=== PATIENT | male | born 1945 | race Caucasian/White ===

== ENCOUNTER 2024-08-27 10:25 | Outpatient (AMB) | payer MEDICARE, SELFPAY ==
--- NOTE | 2024-08-27 10:38 | ORTHONT_ITS ---
Vital signs 08/27/24 10:40 Height 1.85 m Height Method Stated Weight 103.561 kg Weight Measurement Method Standing Scale BMI 30.2 BP 173/71 H Blood Pressure Source Automatic Cuff Blood Pressure Location Right Upper Arm Position Sitting Respiration 18 Pulse 80 Pulse Source Monitor Temp 97.2 F Temp Source Temporal Artery Scan Pulse Oximetry (%) 93 L Oxygen Delivery Method Room Air Med/Allergies Allergies & Medications Allergies bacitracin [From Neosporin ([id number])] Allergy (Severe, Verified 08/27/24 10:41) Redness of Skin neomycin [From Neosporin ([id number])] Allergy (Severe, Verified 08/27/24 10:41) Redness of Skin polymyxin B [From Neosporin ([id number])] Allergy (Severe, Verified 08/27/24 10:41) Redness of Skin Medication Reconciliation mirtazapine 30 mg tablet (Remeron) 30 mg PO HS #0 tabs 02/27/15 [History Confirmed 08/27/24] simvastatin 40 mg tablet (Zocor) 40 mg PO QPM #0 tabs 02/27/15 [History Confirmed 08/27/24] aspirin 81 mg chewable tablet 81 mg PO QDAY ##0 04/21/16 [History Confirmed 08/27/24] finasteride 5 mg tablet 5 mg PO DAILY 04/05/20 [History Confirmed 08/27/24] metformin 500 mg tablet 500 mg PO QDAY 04/05/20 [History Confirmed 08/27/24] omega 9-jdy-lxu-fish oil 1,000 mg (120 mg-180 mg) capsule (Fish Oil) 1 cap PO QDAY 04/05/20 [History Confirmed 08/27/24] omeprazole 40 mg capsule,delayed release 40 mg PO QDAY 04/05/20 [History Confirm ed 08/27/24] hydrochlorothiazide 12.5 mg tablet 25 mg PO QDAY 01/25/21 [History Confirmed 08/27/24] clonazepam 1 mg tablet (Klonopin) 1 mg PO QDAY PRN Anxiety 03/12/21 [History Confirmed 08/27/24] gabapentin 300 mg capsule 300 mg PO QDAY 03/12/21 [History Confirmed 08/27/24] losartan 100 mg tablet 100 mg PO QDAY 03/12/21 [History Confirmed 08/27/24] Saccharomyces boulardii 250 mg capsule (Probiotic (S.boulardii)) 250 mg PO BID 06/16/24 [History Confirmed 08/27/24] cholecalciferol (vitamin D3) 25 mcg (1,000 unit) capsule (Vitamin D3) 25 mcg PO QDAY 06/16/24 [History Confirmed 08/27/24] docusate sodium 100 mg capsule (Dulcolax Stool Softener (docusate)) 100 mg PO QDAY PRN Constipation 06/16/24 [History Confirmed 08/27/24] doxazosin 2 mg tablet 2 mg PO QDAY 06/16/24 [History Confirmed 08/27/24] magnesium 500 mg tablet 500 mg PO DAILY 06/16/24 [History Confirmed 08/27/24] metoprolol succinate 50 mg tablet,extended release 24 hr 50 mg PO QDAY 06/16/24 [History Confirmed 08/27/24] hsdwkterekkc-anrtmvyp-jafoih tablet 1 tab PO QDAY 06/16/24 [History Confirmed 08/27/24] albuterol sulfate 90 mcg/actuation aerosol inhaler (Ventolin HFA) 1 inh inhalation QID PRN shortness of breath or wheezing #6.7 grams 06/18/24 [Rx Confirmed 08/27/24] prednisone 5 mg tablet See Taper PO QDAY #14 tabs 06/18/24 [Rx Confirmed 08/27/24] Subjective Visit Visit for: follow up visit, hip (RIGHT) and injections Immunization / Flu Flu Vaccine in the Last 12 Months: Yes Flu Vaccine Exclusion Criteria: Already Received History of Present Illness Chief complaint: FOLLOW UP RIGHT HIP/INJECTION Neymar is a pleasant 79-year-old male who had a recent spine surgery. The pain down his legs has not significantly improved since then. Right he would like to try a cortisone injection in his right hip. I think this is reasonable. His pain is significant improved since we last saw him Pain Pain level (0-10): 4 Pain duration: WITH MOVEMENT Pain location: inside (medial) Pain quality: aching Pain timing: night and increases with activity Associated signs & symptoms: numbness Ambulatory data Ambulatory device: none Treatments Improvement with previous injections: No Improvement with PT: No Improvement with NSAIDS: no Review of Systems Review of Systems: All systems negative unless otherwise noted in HPI. Exam Exam Patient is in no acute distress and is cooperative with the examination today. Breathing is nonlabored. In no respiratory distress. Patient has no paraspinal tenderness. Spinal deformity cannot be appreciated. The gait of the patient is nonantalgic Bilateral extremities were evaluated and demonstrates sensation intact to light touch. Palpable pedal pulses are present. No significant edema is present. Bilateral knees were examined and the patient has full strength and range of motion.. The left hip was examined. Patient was able to flex to 90 degrees, adduct to 30 degrees, abduct to 40 degrees, internally rotate to 20 degrees, and externally rotate to 20 degrees. Patient has a negative logroll. Stinchfield is negative. The patient is nontender diffusely to touch. The right hip was examined. Patient was able to flex to 90 degrees, adduct to 30 degrees, abduct to 40 degrees, internally rotate to 20 degrees, and externally rotate to 20 degrees. Patient has a negative logroll. The stinchfield is negative. Assessment and Plan Problem List (1) Low back pain: Status: Acute Plan: Patient is a 78-year-old male with significant difficulty ambulating after he walks 10 minutes. We found that he had spinal stenosis and we sent him to a spine doctor who is significantly improved his back and leg pain. He still has some residual pain in his right hip. He would Like to try a right hip cortisone injection after this. He would like to start therapy afterwards and we think this is reasonable. We will see him back after his cortisone injection in his back. (2) Sciatica: Status: Acute Advanced Care Planning Discussion Advance care planning discussed with:: patient and child Office Procedures GNS Level of Care Nursing/Assessment Patient Status: Established Patient Nursing Assessment/Reassesment: Medication Reconciliation, Update PMH in EMR and Vital Signs Coordination of Care: Complex Care and Chronic Disease 1-5, Education Complex Pt/Fam, Consent,records obtained, informed consent, 1 Ins Authorization and Staff clarify orders Established Patient Charge Established Patient Point Assignment: 105 Established Patient Point Charge: EP Level 3 (80-115) Past Medical History Past Medical History Have you ever been diagnosed with any of the following: Neurological Problems Cerebrovascular Accident (CVA): No Transient Ischemic Attacks (TIA): Yes Dementia: No Alzheimer's Disease: No Parkinson's Disease: No Brain Tumor: No Meningitis: No Seizures: No Epilepsy: No Multiple Sclerosis: No Cerebral Palsy: No Amyotrophic Lateral Sclerosis (ALS/Miracle Gehrig's): No Guillain-[place] Syndrome: No Spina Bifida: No Paralysis: No Peripheral Neuropathy: No Jimenez's Palsy: No Subdural Hematoma: No Migraine: No Head Trauma: No Spinal Cord Injury: No Traumatic Brain Injury: No Cardiology Problems Myocardial Infarction: No Cardiac Arrhythmia: No Atrial Fibrillation: No Angina: No Heart Murmur: No Coronary Artery Disease: No Atherosclerotic Heart Disease: No Peripheral Vascular Disease: No Hypercholesterolemia: Yes Aneurysm: No Congestive Heart Failure: No Congenital Heart Disease: No Valvular Heart Disease: No Rheumatic Fever: No Cardiomyopathy: No Edema: No Pericarditis: No Cellulitis: No Deep Vein Thrombosis: No Hypertension: Yes Hypotension: No Varicose Veins: No Respiratory Problems Chronic Obstructive Pulmonary Disease (COPD): No Asthma: No Bronchitis: No Emphysema: No Pneumonia: Yes Pulmonary Fibrosis: No Tuberculosis: No Pulmonary Embolism: No Pulmonary Edema: No Sleep Apnea: No Smoking: No Smoking Exposure: No Stomache/Intestinal Problems Hepatitis: No Cirrhosis: No Pancreatitis: No Celiac Disease: No Gall Bladder Disease: No Gastrointestinal Bleed: No Esophageal Varices: No Cabrera's Esophagus: No Colitis: No Ulcerative Colitis: No Diverticulitis: No Diverticulosis: No Ulcer: No Irritable Bowel: No Crohn's Disease: No Obstructive Bowel: No Hiatal Hernia: No Hemorrhoids: No Gastroesophageal Reflux Disease: Yes Obesity: No Genital/Urinary Problems Renal Disease: No Kidney Stones: No Polycystic Kidney Disease: No Neurogenic Bladder: No Inguinal Hernia: No Dialysis: No Prostate Cancer: No Benign Prostatic Hyperplasia: Yes Reproductive Problems Testicular Cancer: No Musculoskeletal Problems Muscular Dystrophy: No Myasthenia Gravis: No Marfan's Syndrome: No Bone Cancer: No Arthritis: Yes Rheumatoid Arthritis: No Osteoporosis: No Degenerative Disk Disease: No Gout: No Scoliosis: No Carpal Tunnel Syndrome: No Fibromyalgia: No Fractures: Yes Degenerative Joint Disease: No Osteomyelitis: No Poliovirus: No Head,Eye,Nose,Throat Problems Cataracts: Yes Glaucoma: No Blind: No Retinal Detachment: No Macular Degeneration: No Chronic Ear Infections: No Deafness: No Eye Prosthesis: No Endocrine Problems Diabetes Mellitus Type 1: No Diabetes Mellitus Type 2: Yes Hypoglycemia: No Atwood's Syndrome: No Alejandro's Disease: No Hyperthyroidism: No Hypothyroidism: No Parathyroid Disease: No Pituitary Disease: No Systemic Lupus Erythematosus: No Syndrome of Inappropriate Antidiuretic Hormone: No Adrenal Disease: No Graves' Disease: No Blood Problems Anemia: No Leukemia: No Hemophilia: No Thalassemia: No Sickle Cell Disease: No Clotting Problems: No Psychologic Problems Schizophrenia: No Recreational Drug Use: No Bipolar Disorder: No Depression: No Anxiety: No Behavior Problems: No Self-Mutilation: No Attention Deficit Disorder: No Attention Deficit Hyperactivity Disorder: No Depression: No Post Traumatic Stress Disorder: No Eating Disorder: No Other Problems Hospitalization: No Down Syndrome: No Autism: No Developmental Delay: No Falls: No Blood Transfusions: No Blood Transfusion Reaction: No (na) Anesthesia Reactions: No Organ Transplant: No Chemotherapy: No Radiation Therapy: No Hyperbaric Therapy: No MRSA: No VRSA: No Vancomycin-Resistant Enterococci: No Human Immunodeficiency Virus (HIV): No Chicken Pox: No Measles: No Mumps: No Rubella (I[place]ic Measles): No Pertussis: No Clostridium Difficile: No Cancer: No Lung Cancer: No Surgical History Carotid Endarterectomy: No Coronary Artery Bypass Graft: No Valve Replacement: No Pacemaker: No Thyroidectomy: No
[2024-08-27 10:40] VITALS: BP 173/71; PULSE 80; RESP 18; TEMP 36.2; O2SAT 93; BMI 30.2
== END 2024-08-27 10:54 | disposition home or self-care (01) ==
LOC: HODSRG 10:25
PROVIDERS: Supervising Provider Orthopaedic Surgery Adult Reconstructive Orthopaedic Surgery; Visit Provider Orthopaedic Surgery Adult Reconstructive Orthopaedic Surgery
DX: M54.50 Low back pain, unspecified (principal); M54.30 Sciatica, unspecified side; I10 Essential (primary) hypertension; E78.00 Pure hypercholesterolemia, unspecified; Z86.73 Personal history of transient ischemic attack (TIA), and cerebral infarction without residual deficits
CPT/HCPCS: 99213; G0463

== ENCOUNTER → 2024-08-31 | Outpatient (CLI) | payer MEDICARE, SELFPAY ==
[2024-08-31 15:40] LABS: Basophils % (Auto) 1 % (0-2.5); Eosinophils # (Auto) 0.6 Thou/mm3 (0.0-0.5); Eosinophils % (Auto) 10 % (0-10); Hematocrit 32.2 % (41.0-53.0); Immature Granulocytes % (Auto) 0 % (0-0); Immature Granulocytes Auto 0.02 Thou/mm3 (0.00-0.00); Lymphocytes # (Auto) 2.2 Thou/mm3 (1.0-4.8); Lymphocytes % (Auto) 34 % (10-50); Mean Corpuscular HGB Conc 34.2 g/dl (31.0-37.0); Mean Corpuscular Volume 94 fL (80-100); Monocytes # (Auto) 0.6 Thou/mm3 (0.0-0.8); Monocytes % (Auto) 9 % (0-12); Neutrophils % (Auto) 47 % (37-80); Nucleated Red Blood Cell % 0 /100 WBC (0); Platelet Count 238 Thou/mm3 (140-440); RDW Standard Deviation 46.2 fL (35.1-43.9); Red Blood Count 3.44 Miln/mm3 (4.50-5.90); White Blood Count 6.4 Thou/mm3 (3.8-10.6)
--- NOTE | 2024-08-31 15:43 | XR_ITS ---
Examination: MRI brain without intravenous contrast. Date and time of exam: August 31, 2024 1712 hours INDICATIONS: Dizziness episodes loss of balance 4 days Technique: Multiple axial and sagittal images of the brain obtained. Siemens high-resolution 1.5 Tessie short bore scanners utilized. Sagittal sections, T1-weighted, TR 500, TE 14, are performed. Axial sections proton-density and T2-weighted have been obtained. Inversion recovery axial images, TR 9, 260, TE 111, TI 2500. Diffusion weighted images, axial sections, TR 4800, TE 128, B value 1000 Axial sections, ADC map, TR 4800, TE 128 Findings: Enlargement of the sella turcica is not present. The optic chiasm and infundibular are not remarkable. Prepontine and interpeduncular cisterns are not enlarged. There is no localized enlargement of the medulla or thania. Fourth ventricle and cerebellar tonsils appear normal in position. No subacute area of hemorrhage density is seen. Mass in the cerebellopontine angle region is not evident. Globes symmetrical. Orbital musculature including medial lateral rectus muscles do not exhibit abnormality. Diffusion-weighted images demonstrate no focus of restricted diffusion. Increased white matter signal prominent Mild chronic pansinusitis Left mastoiditis Mass effect upon the ventricular system is not identified. Impression: Negative for acute hemorrhage, mass effect or midline shift No acute infarct Prominent chronic microvascular white matter change Left mastoiditis
[2024-08-31 16:00] LABS: Alanine Aminotransferase 17 U/L (10-49); Albumin, Serum 4.4 gm/dL (3.4-4.8); Albumin/Globulin Ratio 1.7 (1.2-2.2); Alkaline Phosphatase 73 U/L (46-116); Anion Gap 4 (7-16); Aspartate Amino Transferase 14 U/L (0-34); BUN/Creatinine Ratio 17 Ratio (12-20); Bilirubin,Total 0.2 mg/dL (0.3-1.2); Blood Urea Nitrogen 29 mg/dL (9-23); Calcium 10.3 mg/dL (8.3-10.6); Calcium (Corrected) 10.3 mg/dL (8.5-10.1); Carbon Dioxide 28.7 mMol/L (20.0-31.0); Chloride 102 mMol/L (98-107); Creatinine (Component) 1.7 mg/dL (0.6-1.3); Globulin 2.6 gm/dL (2.3-3.5); Glucose 200 mg/dL (74-106); Magnesium 1.7 mg/dL (1.6-2.6); Osmolality,Calculated 281 (275-295); Phosphorous 3.4 mg/dL (2.4-5.1); Potassium 4.9 mMol/L (3.4-5.1); Sodium 135 mMol/L (136-145); Thyroid Stimulating Hormone 6.54 uIU/mL (0.55-4.78); eGFR 40 See Note
== END | disposition home or self-care (01) ==
LOC: SLAB 15:07
PROVIDERS: PCP Internal Medicine; Referring Provider Internal Medicine; Visit Provider Radiology Diagnostic Radiology
DX: R90.82 White matter disease, unspecified (principal); R42 Dizziness and giddiness; E87.1 Hypo-osmolality and hyponatremia
CPT/HCPCS: 36415; 70551; 80053; 83735; 84100; 84443; 85025

== ENCOUNTER 2024-10-07 01:11 | Inpatient (IN) | payer MEDICARE, SELFPAY ==
[2024-10-07] VITALS (24 sets, daily range): BP systolic 100–149; BP diastolic 43–77; PULSE 61–120; RESP 16–32; TEMP 36.2–39.9; O2SAT 91–99; BMI 32.1; BMI 32.3
--- NOTE | 2024-10-07 01:22 | EKG_ITS ---
[facility] Test Date: 2024-10-07 Pat Name: JANAE ROCK Department: Room: - Gender: Male Bond Clerk: JAMES : 1945 Requested By: Anabell Carcamo Order Number: [id number] Reading MD: Anabell Carcamo Measurements Intervals [place] Rate: 61 P: MT: QRS: -52 QRSD: 146 T: 1 QT: 415 QTc: 419 Interpretive Statements ATRIAL FLUTTER/TACHYCARDIA MARKED LEFT AXIS DEVIATION [QRS AXIS < -30] RIGHT BUNDLE BRANCH BLOCK [120+ ms QRS DURATION, UPRIGHT V1, 40+ ms S IN I/aVL/V4/V5/V6] Compared to ECG 06/15/2024 00:58:07 Left-axis deviation now present Left anterior fascicular block no longer present /store/S0/[id number]
--- NOTE | 2024-10-07 01:25 | EDNOTE_ITS ---
<Statement entered by Anabell Haro MD - 10/08/24 19:25> I, Anabell Haro MD, have reviewed the history, exam, and assessment of the patient. I have evaluated the patient independently and agree with the plan of care documented by [ ]. All diagnostic studies were reviewed and discussed. I confirm the diagnosis as documented by the Resident. I was present during the Medical Decision Making for this patient. The patient's plan of care was created between myself and the Resident and consistent with our discussion of the patient's case. ED General RME/HPI General Chief complaint: Dizziness Stated complaint: POSS STROKE, SOB Time Seen by Provider: 10/07/24 01:12 Arrival date/time: 10/07/24 01:11 RME / HPI RME / HPI narrative: An 79-year-old male with past medical history of hypertension, diabetes, anxiety, dyslipidemia, acid reflux, EVIN, COPD, TIA, chronic low back pain, severe neuropathy, and CKD stage III, COVID positive, requiring admission on 06/15/2024 presents on 10/07/2024 to the ED due to shortness of breath and generalized weakness. History was obtained by at bedside. Patient has sick contact, daughter who is a nurse and had the flu. 1 day after daughter visited the patient, patient started to feel generalized weakness. Today in the morning patient started to experience shortness of breath with a dry cough. He was also swaying while walking which is not his normal. He was also talking slower with increased weakness. At midnight today, patient screamed while in bed and got up to use the restroom from his bed. He did not make it to the restroom and urinated on himself. Soon after, he vomitted his dinner. Patient did not take any medications or treatment for his symptoms. called the paramedics and he was transported to the ED. Patient's daughter, an RN, has the flu and recently visited the family. Denies recent travel. A stroke alert was called but immediately canceled as patient presented with respiratory symptoms. Per EMS, heart rate was 112, pulse ox 92% on nasal cannula and blood sugar 224. In the ED, 103.6F, BP 148/77, HR 120, respiratory rate 32. LA elevated. He is alert to person, place and time, GCS of 15, and NIHSS unable to assess as patient says he feels to weak to complete the exam. IV fluids, azithromycin, and ceftriaxone given. MD complaint: SOB + generalized weakness Onset (ago): day(s) Location: chest Radiation: non-radiation Severity: moderate and severe Quality: aching Consistency: constant Relieving factors: none Associated symptoms: cough, fever/chills, shortness of breath and weakness Related Data Home Medications ?Medication ?Instructions ?Recorded ?Confirmed mirtazapine 30 mg tablet (Remeron) 30 mg PO HS #0 tabs 02/27/15 08/27/24 simvastatin 40 mg tablet (Zocor) 40 mg PO QPM #0 tabs 02/27/15 08/27/24 aspirin 81 mg chewable tablet 81 mg PO QDAY ##0 04/21/16 08/27/24 finasteride 5 mg tablet 5 mg PO DAILY 04/05/20 08/27/24 metformin 500 mg tablet 500 mg PO QDAY 04/05/20 08/27/24 omega 3-xwb-gby-fish oil 1,000 mg 1 cap PO QDAY 04/05/20 08/27/24 (120 mg-180 mg) capsule (Fish Oil) omeprazole 40 mg capsule,delayed 40 mg PO QDAY 04/05/20 08/27/24 release hydrochlorothiazide 12.5 mg tablet 25 mg PO QDAY 01/25/21 08/27/24 clonazepam 1 mg tablet (Klonopin) 1 mg PO QDAY PRN Anxiety 03/12/21 08/27/24 gabapentin 300 mg capsule 300 mg PO QDAY 03/12/21 08/27/24 losartan 100 mg tablet 100 mg PO QDAY 03/12/21 08/27/24 Saccharomyces boulardii 250 mg 250 mg PO BID 06/16/24 08/27/24 capsule (Probiotic (S.boulardii)) cholecalciferol (vitamin D3) 25 25 mcg PO QDAY 06/16/24 08/27/24 mcg (1,000 unit) capsule (Vitamin D3) docusate sodium 100 mg capsule 100 mg PO QDAY PRN Constipation 06/16/24 08/27/24 (Dulcolax Stool Softener (docusate)) doxazosin 2 mg tablet 2 mg PO QDAY 06/16/24 08/27/24 magnesium 500 mg tablet 500 mg PO DAILY 06/16/24 08/27/24 metoprolol succinate 50 mg 50 mg PO QDAY 06/16/24 08/27/24 tablet,extended release 24 hr aqujoyplurxi-yvrizdew-avxovv tablet 1 tab PO QDAY 06/16/24 08/27/24 Previous Rx's ?Medication ?Instructions ?Recorded albuterol sulfate 90 mcg/actuation 1 inh inhalation QID PRN shortness 06/18/24 aerosol inhaler (Ventolin HFA) of breath or wheezing #6.7 grams prednisone 5 mg tablet See Taper PO QDAY #14 tabs 06/18/24 Allergies Allergy/AdvReac Type Severity Reaction Status Date / Time bacitracin Allergy Severe Redness of Verified 08/27/24 10:41 [From Neosporin Skin ([id number])] neomycin Allergy Severe Redness of Verified 08/27/24 10:41 [From Neosporin Skin ([id number])] polymyxin B Allergy Severe Redness of Verified 08/27/24 10:41 [From Neosporin Skin ([id number])] Review of Systems Review of Systems Systems Reviewed: All systems reviewed, normal except as documented Narrative Review of Systems: Constitutional: Denies sweats, Denies weight loss/gain, Denies subjective fever, Denies chills. HEENT: Admits hearing loss. Respiratory: Admits shortness of breath, Admits cough, Denies wheezing. Cardiovascular: Denies chest pain, Denies palpitations. GI: Denies abdominal pain. Endorses vomit. MSK: Denies joint pain, Denies joint swelling, Denies numbness. Skin: Denies rash. Neuro: Denies headaches, Admits dizziness and weakness. Past Medical History Past Medical History NEUROLOGIC: Positive Neurological Disorders and Transient Ischemic Attacks (TIA); Negative Seizures CARDIAC: Positive Cardiac Disorders, Hypercholesterolemia and Hypertension; Negative Congestive Heart Failure RESPIRATORY: Positive Pneumonia; Negative Chronic Obstructive Pulmonary Disease (COPD) GASTROINTESTINAL: Positive Gastrointestinal Disorders and Gastroesophageal Reflux Disease GENITOURINARY: Positive Genitourinary Disorders and Benign Prostatic Hyperplasia; Negative Renal Disease or Kidney Stones MUSCULOSKELETAL: Positive Musculoskeletal Disorders and Arthritis ENT: Positive Cataracts ENDOCRINE: Positive Endocrine Disorders and Diabetes Mellitus Type 2; Negative Diabetes Mellitus Type 1 HEMATOLOGIC: Negative Blood Disorders OTHER HISTORY: Negative Hospitalization, Autoimmune Disease, Falls, Blood Transfusions, Anesthesia Reactions or Cancer Family History FAMILY HISTORY: Positive Family Cardiac Disorders; Negative Family Psychiatric Problems, Family Respiratory Disorders, Family Gastrointestinal Problems, Family Cancer, Family Surgery or Family Anesthesia Reaction Surgical History SURGICAL: Positive Abdominal Surgery and Joint Replacement Social History SMOKING STATUS: Former smoker SUBSTANCE USE: does not use ALCOHOL LAST INTAKE: Unknown ED Exam Narrative Physical exam: General: well developed elderly male, not in any acute distress Respiratory: Tachypneic, lungs clear souza with diminished breath sounds b/l and b/l wheezing lower lung lobes. Oxygen saturations 91% on NC. HEENT: Normocephalic. Within acceptable limits. Chest: Equal chest rise, nontender to palpation, CV: no murmurs rubs or clicks. S1 and S2. Tachycardia. Abdomen: Nontender no masses or organomegaly Extremities: Moving all extremities with limited ROM UE and LE. Skin: Intact no petechiae rash induration ulceration crepitus Neuro: Awake alert oriented x3 and place Glascow coma 15 Course Quality Measures none Orders Category Date Time Status Bedside COVID-19 Antigen Test NOW Care 10/07/24 01:29 Active Bedside Influenza A&B Antigen Test NOW Care 10/07/24 01:26 Completed COVID-19 Screening Questionnaire NOW Care 10/07/24 03:02 Active Director Community Organization NOW Care 10/07/24 01:26 Active Decision to Admit X1 Care 10/07/24 03:02 Completed EKG (ED ONLY) *Do not use* NOW Care 10/07/24 01:22 Completed CXRP [XR chest 1V portable] Stat Exams 10/07/24 01:26 Taken EKG (ED Only) Stat Exams 10/07/24 01:22 Ordered B-Type Natriuretic Peptide Stat Lab 10/07/24 01:24 Completed Blood Culture (Lab) Stat Lab 10/07/24 01:30 Received CBC Stat Lab 10/07/24 01:24 Completed Cocci Serology IgM with reflex to IgG [Cocci Serology, Lab 10/07/24 01:27 Ordered Unk History] Stat Comprehensive Metabolic Panel Stat Lab 10/07/24 01:24 Completed Influenza A & B Rapid Panel Stat Lab 10/07/24 01:30 Completed Lactate (Lactic Acid) Stat Lab 10/07/24 01:24 Completed Lactic Acid, 3 HR Stat Lab 10/07/24 04:31 Ordered Lipase Stat Lab 10/07/24 01:24 Completed Magnesium Stat Lab 10/07/24 01:24 Completed Partial Thromboplastin Time Stat Lab 10/07/24 01:24 Completed Procalcitonin Stat Lab 10/07/24 01:24 Completed Prothrombin Time with INR Stat Lab 10/07/24 01:24 Completed RSV [Respiratory Syncytial Virus Ag] Stat Lab 10/07/24 01:30 Completed Strep A Rapid Stat Lab 10/07/24 01:30 Completed Troponin I Stat Lab 10/07/24 01:24 Completed Urinalysis Stat Lab 10/07/24 01:26 Ordered Urine Culture Stat Lab 10/07/24 01:26 Ordered Acetaminophen Tab [Tylenol ES Tab] Med 10/07/24 01:53 Discontinued 1,000 mg PO X1 ONE Albuterol/Ipratr Rt Ophelia [Duoneb Rt Ophelia] Med 10/07/24 01:45 Discontinued 3 ml INH X1 ONE Azithromycin Po [Zithromax PO] Med 10/07/24 01:46 Discontinued 500 mg PO X1 ONE Sodium Chloride 0.9% 1000 ml [Ns] 1,000 ml Med 10/07/24 01:54 Discontinued IV 999 mls/hr Sodium Chloride 0.9% 1000 ml [Ns] 1,000 ml Med 10/07/24 01:54 Discontinued IV 999 mls/hr cefTRIAXone/D5w 1gm IV premix [Rocephin/D5w 1gm IV Med 10/07/24 01:47 Discontinued premix] 50 ml IV X1 Vital Signs Vital signs: Vital Signs Temperature 103.8 F H 10/07/24 01:15 Pulse Rate 90 10/07/24 01:15 Respiratory Rate 28 H 10/07/24 01:15 Blood Pressure 148/77 H 10/07/24 01:15 Pulse Oximetry (%) 96 10/07/24 01:15 Oxygen Delivery Method Nasal Cannula 10/07/24 01:15 Oxygen Flow Rate 4 10/07/24 01:15 [facility] Patient data External records reviewed:: [facility] previous records Clinical information provided by:: patient Social determinants that could affect healthcare access:: none Patient has the following chronic illnesses:: H/o How is presenting disease/condition affected by chronic disease/condition?: e xacerbated by Evaluation data The following diagnostics were reviewed and interpreted by me:: lab results, radiology exam(s) and EKG tracing(s) Lab and/or radiology exams considered but not ordered:: None Interpretation Summary: CBC within normal limits. CMP Medications Medications considered but not ordered:: None Medication administrations:: Medication Administration History Discontinued Medications Acetaminophen (Acetaminophen 500 Mg Tablet) 1,000 mg PO X1 ONE Stop: 10/07/24 01:54 Last Admin: 10/07/24 02:03 Dose: 1,000 mg Documented By: SF Albuterol/Ipratropium (Albuterol/Ipratropium (Duoneb) Rt Ophelia 3 Ml Nebu) 3 ml INH X1 ONE Stop: 10/07/24 01:46 Last Admin: 10/07/24 02:04 Dose: 3 ml Documented By: SC Azithromycin (Azithromycin 250 Mg Tablet) 500 mg PO X1 ONE Stop: 10/07/24 01:47 Last Admin: 10/07/24 01:57 Dose: Not Given Documented By: SF Non-Admin Reason: Discontinued Ceftriaxone Sodium/Dextrose (Rocephin/D5w 1gm Iv Premix) 50 mls @ 100 mls/hr IV X1 ONE Stop: 10/07/24 02:16 Last Infusion: 10/07/24 02:59 Dose: Infused Documented By: Admin: 10/07/24 02:04 Dose: 100 mls/hr Documented By: SF Sodium Chloride (Ns) 1,000 mls @ 999 mls/hr IV .Q1H1M ONE Stop: 10/07/24 02:54 Last Infusion: 10/07/24 04:06 Dose: Infused Documented By: Admin: 10/07/24 02:03 Dose: 999 mls/hr Documented By: SHEEBA Sodium Chloride (Ns) 1,000 mls @ 999 mls/hr IV .Q1H1M ONE Stop: 10/07/24 02:54 Last Infusion: 10/07/24 04:06 Dose: Infused Documented By: Admin: 10/07/24 02:04 Dose: 999 mls/hr Documented By: SF IV fluids, duonebs, Tylenol, ceftriaxone, azithromycin. Consultations Consultation(s) initiated? (list below): No Diagnosis Differential Diagnosis ED Complaint MDM: COPD exacerbation Most likely diagnosis given after review of the tests above:: Pneumonia Admission Indicated Admission indicated?: indicated Explain why admission is indicated or not indicated:: Indicated bc patient meets sepsis criteria 103.6F, 120 HR, RR 32, 91% 4 L nasal cannula (normally on 2L home oxygen) with a source of pneumonia. LA elevated but no WBC elevation. CXR shows blunted Left coastaphrenic angle. He requires IV antibiotics for management of infection and hence admission for sepsis 2/2 pneumonia. Admission Request Was there a request for admission?: Yes Admission Attestation Admission request attestation: Discussed case with [] from Hospitalist service regarding admission. Discussed patients ED course, exam findings, labs, and radiology results. The Hospitalist [agrees,declines] to accept the patient for admission. Disposition Plan Disposition Plan: Admit Medical Decision Making MDM Narrative MDM Narrative: 79-year-old male with past medical history of hypertension, diabetes, anxiety, dyslipidemia, acid reflux, EVIN, COPD, TIA, chronic low back pain, severe neuropathy, and CKD stage III, COVID positive, requiring admission on 06/15/2024 presents on 10/07/2024 to the ED due to shortness of breath and generalized weakness. Patient was brought in by ambulance from home for SOB and possible stroke as he was found to have changes in his speech per family account to EMS. Patient vomited at home today and felt dry cough with SOB. He is septic in the ED, requiring treatment with ABX and fluids. Patient may have likely aspirated as he is elderly putting him at risk for aspiration and he had sick contact (daughter with flu). COPD exacerbation is possible considering cough with increased frequency requiring higher oxygen levels. Differential Diagnosis Differential Diagnosis: COPD exacerbation Lab Data 10/07/24 01:24 10/07/24 01:24 Labs: Lab Results 10/07/24 10/07/24 Range/Units 01:24 01:30 WBC 7.1 (3.8-10.6) Thou/mm3 RBC 3.39 L (4.50-5.90) Miln/mm3 Hgb 10.9 L (13.5-16.0) g/dL Hct 31.3 L (41.0-53.0) % MCV 92 (80-100) fL MCH 32.2 (25.0-35.0) pg MCHC 34.8 (31.0-37.0) g/dl RDW Std Deviation 46.8 H (35.1-43.9) fL Plt Count 181 D (140-440) Thou/mm3 Neut % (Auto) 74 (37-80) % Lymph % (Auto) 14 (10-50) % [place] % (Auto) 7 (0-12) % Eos % (Auto) 5 (0-10) % Baso % (Auto) 0 (0-2.5) % Neut # (Auto) 5.2 (1.8-7.7) Thou/mm3 Lymph # (Auto) 1.0 (1.0-4.8) Thou/mm3 [place] # (Auto) 0.5 (0.0-0.8) Thou/mm3 Eos # (Auto) 0.4 (0.0-0.5) Thou/mm3 Baso # (Auto) 0.0 (0.0-0.2) Thou/mm3 Immature Gran # (Auto) 0.02 H (0.00-0.00) Thou/mm3 Absolute Nucleated RBC 0.00 (0.00-0.00) Thou/mm3 Immature Gran % 0 (0-0) % Nucleated RBC % 0 (0) /100 WBC PT 10.9 (9.0-12.2) Seconds INR 1.0 (0.9-1.3) APTT 23.7 (22.0-36.0) Seconds Sodium 134 L (136-145) mMol/L Potassium 4.1 (3.4-5.1) mMol/L Chloride 102 (98-107) mMol/L Carbon Dioxide 23.0 (20.0-31.0) mMol/L Anion Gap 9 (7-16) BUN 36 H (9-23) mg/dL Creatinine 2.0 H (0.6-1.3) mg/dL Estim Creat Clear Calc 36.2 L (>60) mL/min eGFR 33 L (60 - ) See Note BUN/Creatinine Ratio 18 (12-20) Ratio Glucose 262 H (74-106) mg/dL Calculated Osmolality 285 (275-295) Lactic Acid 3.2 H (0.4-2.0) mMol/L Calcium 9.7 (8.3-10.6) mg/dL Corrected Calcium 9.7 (8.5-10.1) mg/dL Magnesium 1.8 (1.6-2.6) mg/dL Total Bilirubin 0.3 (0.3-1.2) mg/dL AST 21 (0-34) U/L ALT 26 (10-49) U/L Alkaline Phosphatase 84 (46-116) U/L Troponin I < 0.020 (0.0-0.045) ng/mL B-Natriuretic Peptide 134 H (0-100) pg/mL Total Protein 6.7 (5.7-8.2) gm/dL Albumin 4.5 (3.4-4.8) gm/dL Globulin 2.2 L (2.3-3.5) gm/dL Albumin/Globulin Ratio 2.0 (1.2-2.2) Lipase 52 (12-53) U/L Procalcitonin 0.22 (0.0-0.49) ng/ml Influenza A (Rapid) TNP Influenza B (Rapid) TNP RSV Rapid Negative (Negative) Group A Strep Rapid Negative (Negative) Discharge Plan Plan Patient Disposition: Admit Acute Care w/in Hospital Prescriptions/Referrals Prescriptions/Med Rec: No Action simvastatin [Zocor] 40 MG tablet 40 mg PO QPM Qty: 0 mirtazapine [Remeron] 30 MG tablet 30 mg PO HS Qty: 0 aspirin 81 MG tablet,chewable 81 mg PO QDAY Qty: 0 omeprazole 40 mg Capsule,Delayed Release(Dr/Ec) 40 mg PO QDAY finasteride 5 mg Tablet 5 mg PO DAILY omega 3-hyv-vhf-fish oil [Fish Oil] 1,000 mg (120 mg-180 mg) Capsule 1 cap PO QDAY metformin 500 mg Tablet 500 mg PO QDAY hydrochlorothiazide 12.5 mg Tablet 25 mg PO QDAY clonazepam [Klonopin] 1 mg tablet 1 mg PO QDAY PRN (Reason: Anxiety) gabapentin 300 mg capsule 300 mg PO QDAY Patient Comments: TAKE 1 CAPSULE BY MOUTH EVERY DAY losartan 100 mg tablet 100 mg PO QDAY Patient Comments: TAKE 1 TABLET BY MOUTH EVERY DAY magnesium 500 mg Tablet 500 mg PO DAILY metoprolol succinate 50 mg tablet extended release 24 hr 50 mg PO QDAY Patient Comments: TAKE 1 TABLET BY MOUTH TWICE A DAY docusate sodium [Dulcolax Stool Softener (dss)] 100 mg Capsule 100 mg PO QDAY PRN (Reason: Constipation) doxazosin 2 mg Tablet 2 mg PO QDAY cholecalciferol (vitamin D3) [Vitamin D3] 25 mcg (1,000 unit) Capsule 25 mcg PO QDAY cpirpdthtrrq-ongllcsy-lqhski Tablet 1 tab PO QDAY Saccharomyces boulardii [Probiotic (S.boulardii)] 250 mg Capsule 250 mg PO BID albuterol sulfate [Ventolin HFA] 90 mcg/actuation HFA aerosol inhaler 1 inh inhalation QID PRN (Reason: shortness of breath or wheezing) Qty: 6.7 0RF prednisone 5 mg tablet See Taper PO QDAY Qty: 14 0RF Taper: Prednisone Taper 20 mg DAILY for 2 Days and 0 Hour 10 mg DAILY for 2 Days and 0 Hour 5 mg DAILY for 2 Days and 0 Hour Problem List Clinical Impression: Community acquired pneumonia, Acute hypoxic respiratory failure, Acute upper respiratory infection, Acute exacerbation of chronic obstructive airways disease Patient/Caregiver Discharge Instructions Education Materials: COPD: Chronic Coughing, COPD: Coping with Mucus, Chronic Lung Disease Exercise Print Language: [place] Citizen Stand Alone Forms: Lauren Award Info., Patient Portal Info Letter
--- NOTE | 2024-10-07 01:26 | XR_ITS ---
Examination: AP chest single view Technique one AP portable upright chest single view Exam date and time: October 07, 2024 0139 hrs. Comparison June 15, 2024 Indications: Shortness of breath today Findings: Mild prominence of ventricle Significant vascular congestion No lobar pneumonia The osseous structures are intact Impression: Significant vascular congestion
[2024-10-07 01:33] LABS: Lactate (Lactic Acid) 3.2 mMol/L (0.4-2.0)
[2024-10-07 01:34] LABS: Basophils % (Auto) 0 % (0-2.5); Eosinophils # (Auto) 0.4 Thou/mm3 (0.0-0.5); Eosinophils % (Auto) 5 % (0-10); Hematocrit 31.3 % (41.0-53.0); Hemoglobin 10.9 g/dL (13.5-16.0); Immature Granulocytes % (Auto) 0 % (0-0); Immature Granulocytes Auto 0.02 Thou/mm3 (0.00-0.00); Lymphocytes % (Auto) 14 % (10-50); Mean Corpuscular HGB Conc 34.8 g/dl (31.0-37.0); Mean Corpuscular Hemoglobin 32.2 pg (25.0-35.0); Mean Corpuscular Volume 92 fL (80-100); Monocytes # (Auto) 0.5 Thou/mm3 (0.0-0.8); Monocytes % (Auto) 7 % (0-12); Neutrophils # (Auto) 5.2 Thou/mm3 (1.8-7.7); Neutrophils % (Auto) 74 % (37-80); Nucleated Red Blood Cell % 0 /100 WBC (0); Platelet Count 181 Thou/mm3 (140-440); RDW Standard Deviation 46.8 fL (35.1-43.9); Red Blood Count 3.39 Miln/mm3 (4.50-5.90); White Blood Count 7.1 Thou/mm3 (3.8-10.6)
[2024-10-07 01:53] LABS: Partial Thromboplastin Time 23.7 Seconds (22.0-36.0); Prothrombin Time 10.9 Seconds (9.0-12.2)
[2024-10-07 01:54] LABS: B-Type Natriuretic Peptide 134 pg/mL (0-100)
[2024-10-07] MEDS: ACETAMINOPHEN 500 MG TABLET 1000 MG PO (02:03)
[2024-10-07] MEDS: SODIUM CHLORIDE 0.9% 1000 ML 1,000 ML 999 ML IV ×2 (02:03→02:04)
[2024-10-07 02:04] LABS: Alanine Aminotransferase 26 U/L (10-49); Albumin, Serum 4.5 gm/dL (3.4-4.8); Alkaline Phosphatase 84 U/L (46-116); Anion Gap 9 (7-16); Aspartate Amino Transferase 21 U/L (0-34); BUN/Creatinine Ratio 18 Ratio (12-20); Bilirubin,Total 0.3 mg/dL (0.3-1.2); Blood Urea Nitrogen 36 mg/dL (9-23); Calcium 9.7 mg/dL (8.3-10.6); Calcium (Corrected) 9.7 mg/dL (8.5-10.1); Chloride 102 mMol/L (98-107); Estimated Creatinine Clearance 36.2 mL/min (>60); Globulin 2.2 gm/dL (2.3-3.5); Glucose 262 mg/dL (74-106); Lipase 52 U/L (12-53); Magnesium 1.8 mg/dL (1.6-2.6); Osmolality,Calculated 285 (275-295); Potassium 4.1 mMol/L (3.4-5.1); Procalcitonin 0.22 ng/ml (0.0-0.49); Sodium 134 mMol/L (136-145); Total Protein 6.7 gm/dL (5.7-8.2); Troponin I < 0.020 ng/mL (0.0-0.045); eGFR 33 See Note
[2024-10-07] MEDS: cefTRIAXone/D5w 1gm IV premix 50 ML IV ×2 (02:04→20:17)
[2024-10-07] MEDS: ALBUTEROL/IPRATROPIUM (Duoneb) RT SOL 3 ML NEBU INH ×3 (02:04→19:32)
[2024-10-07 02:14] LABS: Strep A Rapid Negative (Negative)
[2024-10-07 02:28] LABS: Respiratory Syncytial Virus Ag Negative (Negative)
[2024-10-07 04:31] LABS: Reflex Lactate? Y
--- NOTE | 2024-10-07 05:09 | XR_ITS ---
Examination: CT brain head without contrast. 2-D sagittal coronal reconstructions Date and time of exam:October 07, 2024 0531 hrs. Indications: Slurred speech altered mental status today Comparison: June 15, 2024 CTDI: vol (mGy):56.60 DLP: (mGycm):1122 Technique: Multiple CT axial sections of the brain have been obtained, 5 mm slice thickness. Contrast has not been administered. 2-D sagittal, coronal reconstructions have been obtained Low dose protocols were performed. One or more of the following dose reduction techniques were used; automated exposure control, adjustment of the mA and/or KV according to patient size, use of iterative reconstruction technique. Findings: No significant ventricular enlargement. Intra-axial or extra-axial hemorrhage density is not seen. No mass effect or midline shift Basal cisterns are not remarkable. Fourth ventricle is midline. Cranial vault intact. Impression: Negative for acute hemorrhage, mass effect or midline shift As clinically warranted, consider repeat brain MRI follow-up stroke protocol
[2024-10-07 05:17] LABS: Lactic Acid, 3 HR 1.5 mMol/L (0.4-2.0)
--- NOTE | 2024-10-07 05:51 | PC.RT ---
Pt taken to CT at this time. No complications noted. PT returned to ER room 4 and left on current vent settings.
--- NOTE | 2024-10-07 06:28 | PRELIM_ITS ---
CT scan of the head without intravenous contrast (axial sections with sagittal and coronal reformats) October 07, 2024 0531 hoursClinical history: slowed speechCompared with the prior study dated 2023Findings:There is no evidence of intracranial hemorrhage, mass effect or midline shift. There are periventricular white matter hypodensities, compatible with chronic small vessel ischemia. The CSF s paces are prominent consistent with volume loss. There is atheromatous calcification of the intracran ial arteries. The calvarium is intact. Hyperostosis frontalis interna is identified. There is a well defined cystic lytic lesion measuring 1.5 x 0.8 x 1.2 cm in the right maxilla, also noted in the prio r study, unchanged since the prior examination. Patient is edentulous. The mastoid air cells and the visualized paranasal sinuses are clear.Impression:No evidence of intracranial hemorrhage, mass effect or midline shift.Periventricular chronic small vessel ischemia and volume loss. Report Electronicall y Signed By: Arlyn Cantor 10/07/2024 6:27:36 AM [EST]
--- NOTE | 2024-10-07 07:47 | ECHO_ITS ---
Transthoracic Echo Report Ht (in): 71 Wt (lb): 230 Exam Location: Portable Status: Emergency Sole Cementer: Liane Ewing Indications: Procedure Performed: BP: 101 / 45 HR: 63 Rhythm: Sinus Technical Quality: Technically difficult study MEASUREMENTS (Male / Female) Normal Values 2D ECHO LV Diastolic Diameter PLAX 4.2 cm 4.2 - 5.9 / 3.9 - 5.3 cm LV Systolic Diameter PLAX 2.7 cm IVS Diastolic Thickness 1.2 cm 0.6 - 1.0 / 0.6 - 0.9 cm LVPW Diastolic Thickness 1.2 cm 0.6 - 1.0 / 0.6 - 0.9 cm LV Relative Wall Thickness 0.6 LVOT Diameter 1.8 cm LA Volume Index 18.1 cm?/m? 16 - 28 cm?/m? Ascending Aorta Diameter 2.7 cm M-MODE Aortic Root Diameter MM 3.1 cm LA Systolic Diameter MM 4.1 cm LA Ao Ratio MM 1.3 AV Cusp Separation MM 2.2 cm DOPPLER AV Peak Velocity 154.0 cm/s AV Peak Gradient 9.5 mmHg AV Mean Gradient 5.0 mmHg AV Velocity Time Integral 33.1 cm LVOT Peak Velocity 112.0 cm/s LVOT Peak Gradient 5.0 mmHg LVOT Velocity Time Integral 23.5 cm LVOT Cardiac Index 1626.5 cm?/min?m? AV Area Cont Eq vti 1.8 cm? AV Area Cont Eq pk 1.9 cm? MV Peak Velocity 113.0 cm/s MV Peak Gradient 5.1 mmHg MV Mean Velocity 57.3 cm/s MV Mean Gradient 2.0 mmHg MV Area PHT 5.0 cm? Mitral E Point Velocity 103.0 cm/s Mitral A Point Velocity 87.3 cm/s Mitral E to A Ratio 1.2 LV E' Lateral Velocity 17.0 cm/s Mitral E to LV E' Lateral Ratio 6.1 LV E' Septal Velocity 11.7 cm/s Mitral E to LV E' Septal Ratio 8.8 FINDINGS Left Ventricle Normal left ventricular size, systolic function with no obvious regional wall motion abnormalities. Mild LVH. The ejection fraction is visually estimated at 65-70%. Right Ventricle The right ventricle is normal in size and systolic function. Left Atrium The left atrium is normal by two-dimensional, color flow and Doppler imaging with no structural abnormalities, no thrombus formation present. Right Atrium The right atrium is normal by two-dimensional imaging, color flow and Doppler imaging with no struct ural abnormalities, no thrombus formation present. Atrial Septum The interatrial septum appears normal with no evidence of a shunt. Aorta The aorta is normal by two-dimensional, color flow and Doppler interrogation. Mitral Valve The mitral valve is normal by two-dimensional, color flow and Doppler interrogation. There is no sig nificant mitral valve regurgitation. Aortic Valve The aortic valve is trileaflet. Mild sclerosis without stenosis. There is no significant aortic valv e regurgitation. Tricuspid Valve The tricuspid valve is normal by two-dimensional, color flow and Doppler interrogation. There is tra ce tricuspid valve regurgitation. Pulmonic Valve The pulmonic valve is normal by two-dimensional, color flow and Doppler interrogation. There is no significant pulmonic valve regurgitation. Vessels The pulmonary artery appears normal. The inferior vena cava pulmonary and hepatic veins appear kelsea l. Pericardium The pericardium is normal by two-dimensional imaging. There is no significant pericardial effusion. CONCLUSIONS The transthoracic study is normal by two-dimensional, color flow imaging and Doppler interrogation. Normal LV size and function. Mild LVH. Estimated EF 65-70% Normal RV size and function. Trace TR. Mild AV sclerosis without stenosis. Symone Fermin (Electronically Signed) Final Date: 08 October 2024 15:12
[2024-10-07] MEDS: SENNA TABLET 1 TAB PO (08:27)
[2024-10-07] MEDS: FUROSEMIDE INJ 10 MG/ML 4ML VIAL 40 MG IVP (09:24)
[2024-10-07] MEDS: HEPARIN SOD INJ 5000 UNIT/ML VIAL SC ×2 (09:33→20:17)
[2024-10-07] MEDS: PANTOPRAZOLE 40 MG TABLET PO (09:36)
[2024-10-07] MEDS: AZITHROMYCIN INJ 500 MG in SODIUM CHLORIDE 0.9% 250 ML 250 ML 250 MG IV (09:36)
[2024-10-07 11:44] LABS: Collection Type, Urine Clean Catch; Squamous Epithelial Cell,Urine 0 /hpf (0-5); WBC,Urine 0 /hpf (0-5)
[2024-10-07 11:58] LABS: Bilirubin,Urine Negative (Negative); Blood,Urine Negative (Negative); Clarity,Urine Clear (Clear/Hazy); Color,Urine Colorless (Lt Yel-Yel); Glucose, Urine 4+ (Negative); Ketones,Urine Negative (Negative); Leukocyte Esterase,Urine Negative (Negative); Nitrite,Urine Negative (Negative); Protein,Urine Negative (Neg - Trace); RBC,Urine 1 /hpf (0-3); Specific Gravity,Urine 1.008 (1.001-1.035); Urobilinogen,Urine Negative mg/dL (0.0-1.0)
--- NOTE | 2024-10-07 12:03 | PC.NURSE ---
pt taken to floor on tele, no issues
[2024-10-07] MEDS: INSULIN LISPRO (AdmeLOG) 1 UNIT/0.01 ML UNIT SC ×2 (12:40→17:29)
--- NOTE | 2024-10-07 13:34 | PD.RESHP ---
Documentation for date of: 10/07/24 [facility] History of Present Illness Chief complaint: Shortness of breath, fever History of present illness: Mr. Boo is a 79-year-old male with past medical history of hypertension, diabetes mellitus, COPD (on 2 L oxygen at home) anxiety, dyslipidemia, GERD, obstructive sleep apnea (on CPAP at home), transient ischemic attack, spinal stenosis, chronic back pain and chronic kidney disease stage IIIa who presented to [facility] with a chief complaint of fever, cough and shortness of breath. According to the patient his symptoms started 2 to 3 days ago when he started reporting generalized weakness, today in morning patient reported fevers and chills, reports he does not remember much except that he was brought to the hospital by paramedics because of high temperature. Per chart review patient's in the ED provided history that patient started experiencing shortness of breath and dry cough earlier this morning along with fever and generalized weakness, reported sick contact, patient's daughter nurse by profession positive for flu. Also per patient's at midnight and today patient screamed while in bed and got up to use the restroom, was unable to make it to restroom and urinated on himself followed by an episode of nonbloody emesis. ED Course: Sepsis alert called in the ED, patient met SIRS criteria 2/4 with source of infection suspected pulmonary due to acute hypoxic respiratory failure ED Vitals: On presentation BP 148/77, P 90, RR 28, temp 103.8, O2 sat 96 on 4 L nasal cannula ED Labs: Patient's labs on presentation significant for RBC 3.39, hemoglobin 10.9, hematocrit 31.3, sodium 134, BUN 36, creatinine 2.0, GFR 33, glucose 262, lactic acid 3.2 BNP 134, globulin 2.2. RSV, group A strep bedside COVID and bedside flu negative ED Imaging: Chest x-ray in ED shows moderate vascular congestion and head CT negative for any acute findings ED Treatment: Patient was given ceftriaxone and azithromycin in ED, Tylenol 1000 mg, 2 L NS and breathing treatment with albuterol/ipratropium Home medications: Reports taking gabapentin 300 mg at bedtime, simvastatin 40 mg at bedtime, doxazosin 2 mg at bedtime, finasteride 5 mg at bedtime, mirtazapine 30 mg at bedtime, metoprolol succinate 50 mg, omeprazole 20 mg, hydrochlorothiazide 25 daily, metformin 500 3 times daily, glipizide twice daily Patient admitted for management of acute hypoxic respiratory failure secondary to suspected community-acquired pneumonia. Review of Systems Review of Systems Narrative Review of Systems: ROS: -CONSTITUTIONAL: Denies weight loss, positive for fever and chills. -HEENT: Denies changes in vision and hearing. -RESPIRATORY: Positive for SOB and cough. -CV: Denies palpitations and Chest Pain. -GI: Denies abdominal pain, nausea and diarrhea. Positive for constipation and vomiting. -: Denies dysuria and urinary frequency. -MSK: Denies myalgia and joint pain. -SKIN: Denies rash and pruritus. -NEUROLOGICAL: Denies headache and syncope. -PSYCHIATRIC: Denies recent changes in mood. Denies anxiety and depression. Past Medical History Past Medical History NEUROLOGIC: Positive Neurological Disorders and Transient Ischemic Attacks (TIA); Negative Cerebrovascular Accident, Dementia, Alzheimer's Disease, Parkinson's Disease, Brain Tumor, Meningitis, Seizures, Epilepsy, Multiple Sclerosis, Cerebral Palsy, Amyotrophic Lateral Sclerosis (ALS/Miracle Gehrig's), Guillain-Hamlet Syndrome, Spina Bifida, Paralysis, Peripheral Neuropathy, Jimenez's Palsy, Subdural Hematoma, Migraine, Head Trauma, Spinal Cord Injury or Traumatic Brain Injury CARDIAC: Positive Cardiac Disorders, Hypercholesterolemia and Hypertension; Negative Myocardial Infarction, Cardiac Arrhythmia, Atrial Fibrillation, Angina, Heart Murmur, Coronary Artery Disease, Atherosclerotic Heart Disease, Peripheral Vascular Disease, Aneurysm, Congestive Heart Failure, Congenital Heart Disease, Valvular Heart Disease, Rheumatic Fever, Cardiomyopathy, Edema, Pericarditis, Cellulitis, Deep Vein Thrombosis, Hypotension or Varicose Veins RESPIRATORY: Positive Pneumonia; Negative Chronic Obstructive Pulmonary Disease (COPD), Asthma, Bronchitis, Emphysema, Pulmonary Fibrosis, Cystic Fibrosis, Tuberculosis, Pulmonary Embolism, Pulmonary Edema, Sleep Apnea, Smoking or Smoking Exposure GASTROINTESTINAL: Positive Gastrointestinal Disorders and Gastroesophageal Reflux Disease; Negative Hepatitis, Cirrhosis, Pancreatitis, Celiac Disease, Gall Bladder Disease, Gastrointestinal Bleed, Esophageal Varices, Cabrera's Esophagus, Colitis, Ulcerative Colitis, Diverticulitis, Diverticulosis, Ulcer, Irritable Bowel, Crohn's Disease, Obstructive Bowel, Hiatal Hernia, Hemorrhoids or Obesity GENITOURINARY: Positive Genitourinary Disorders and Benign Prostatic Hyperplasia; Negative Renal Disease, Kidney Stones, Polycystic Kidney Disease, Neurogenic Bladder, Inguinal Hernia, Dialysis or Prostate Cancer REPRODUCTIVE: Negative Testicular Cancer MUSCULOSKELETAL: Positive Musculoskeletal Disorders, Arthritis and Fractures; Negative Muscular Dystrophy, Myasthenia Gravis, Marfan's Syndrome, Bone Cancer, Rheumatoid Arthritis, Osteoporosis, Degenerative Disk Disease, Gout, Scoliosis, Carpal Tunnel Syndrome, Fibromyalgia, Degenerative Joint Disease, Osteomyelitis or Poliovirus ENT: Positive Cataracts; Negative Glaucoma, Blind, Retinal Detachment, Macular Degeneration, Ear Infection, Deafness, Head Trauma or Eye Prosthesis ENDOCRINE: Positive Endocrine Disorders and Diabetes Mellitus Type 2; Negative Diabetes Mellitus Type 1, Hypoglycemia, Rosalie's Syndrome, Alejandro's Disease, Hyperthyroidism, Hypothyroidism, Parathyroid Disease, Pituitary Disease, Systemic Lupus Erythematosus, Syndrome of Inappropriate Antidiuretic Hormone (SIADH), Adrenal Disease or Graves' Disease HEMATOLOGIC: Negative Blood Disorders, Anemia, Leukemia, Hemophilia, Thalassemia, Sickle Cell Disease or Clotting Problems PSYCHO/SOCIAL: Negative Psychiatric Problems, Schizophrenia, Recreational Drug Use, Bipolar Disorder, Depression, Anxiety, Behavior Problems, Self-Mutilation, Attention Deficit Disorder, Attention Deficit Hyperactivity Disorder, Depression, Post Traumatic Stress Disorder or Eating Disorder OTHER HISTORY: Negative Hospitalization, Autoimmune Disease, Down Syndrome, Autism, Developmental Delay, Falls, Blood Transfusions, Blood Transfusion Reaction (na), Anesthesia Reactions, Organ Transplant, Chemotherapy, Radiation Therapy, Hyperbaric Therapy, MRSA, VRSA, Vancomycin-Resistant Enterococci, Human Immunodeficiency Virus (HIV), Chicken Pox, Measles, Mumps, Rubella (Indian Measles), Pertussis, Clostridium Difficile, Cancer, Lung Cancer, Prostate Cancer or Testicular Cancer Family History FAMILY HISTORY: Positive Family Cardiac Disorders; Negative Family Psychiatric Problems, Family Respiratory Disorders, Family Gastrointestinal Problems, Family Cancer, Family Surgery or Family Anesthesia Reaction Surgical History SURGICAL: Positive Abdominal Surgery and Joint Replacement; Negative Cardiac Surgery, Open Heart Surgery, Coronary Artery Bypass Graft, Valve Replacement, Vascular Surgery, Coronary Stent, Cardiac Catheterization, Pacemaker, Angiogram, Auto Implanted Cardiovert Defib, Carotid Endarterectomy, Endocrine Surgery, Thyroidectomy, Ear Surgery, Tympanostomy Tube, Eye Surgery, Nose Surgery, Oral Surgery, Tonsillectomy, Adenoidectomy, Cochlear Implant, Corneal Transplant, Throat Surgery, Tracheostomy, Gastric Bypass Surgery, Gastrostomy, Bowel Surgery, Nephrectomy, Transurethral Resection, Amputation, Open Reduction Internal Fixation, Arthroscopy, Neurologic Surgery, Brain Shunt, Vasectomy or Organ Transplant Social History SMOKING STATUS: Former smoker SECOND HAND EXPOSURE: No SUBSTANCE USE: does not use ALCOHOL LAST INTAKE: Unknown Past Medical History Comments PMH COMMENT: PMH: Positive for hypertension, diabetes mellitus, COPD (on 2 L oxygen at home) anxiety, dyslipidemia, GERD, obstructive sleep apnea (on CPAP at home), transient ischemic attack, spinal stenosis, chronic back pain and chronic kidney disease stage IIIa PSHx: Positive for abdominal surgery and joint replacement in past Allergies: Denies, NKA Social history: Patient lives at home with , dependent ADLs, ambulatory without any cane/walker -Smoking:Former smoker -Alcohol Use: Denies -Illicit Drug Use: Denies -Martial Status: Family History:Family history positive for cardiac disorders Exam Vital Signs Temp Pulse Resp BP Pulse Ox O2 Del Method O2 Flow Rate 97.1 F 67 25 H 121/58 L 97 Nasal Cannula 4 10/07/24 12:14 10/07/24 12:14 10/07/24 12:14 10/07/24 12:14 10/07/24 12:14 10/07/24 12:14 10/07/24 12:14 Narrative Exam Physical Exam General: Awake and in no acute distress. Conversational and non-toxic appearing. HEENT: Normocephalic, atraumatic, mucous membranes moist. Heart: Regular rate and rhythm, no murmurs. Lungs: Diminished breath sounds bilaterally, wheezing bilaterally, saturating 95% on 2 L nasal cannula, no crackles. Abdomen: Soft, obese, nondistended, nontender, positive bowel sounds. ?No guarding or rebound tenderness. Neurologic: Alert and oriented x3, no gross neurological deficit, and patient able to move all 4 extremities. Extremities: Trace edema noted bilaterally. Skin: No rash or ecchymoses. Results: Labs 10/09/24 05:27 10/09/24 05:27 Labs: Short CBC 10/07/24 Range/Units 01:24 WBC 7.1 (3.8-10.6) Thou/mm3 Hgb 10.9 L (13.5-16.0) g/dL Hct 31.3 L (41.0-53.0) % Plt Count 181 D (140-440) Thou/mm3 BMP 10/07/24 01:24 Sodium 134 L Potassium 4.1 Chloride 102 Carbon Dioxide 23.0 BUN 36 H Creatinine 2.0 H Glucose 262 H Calcium 9.7 Cardiac Enzymes 10/07/24 Range/Units 01:24 Troponin I < 0.020 (0.0-0.045) ng/mL Liver Function 10/07/24 Range/Units 01:24 Total Bilirubin 0.3 (0.3-1.2) mg/dL AST 21 (0-34) U/L ALT 26 (10-49) U/L Alkaline Phosphatase 84 (46-116) U/L Albumin 4.5 (3.4-4.8) gm/dL Urine 10/07/24 Range/Units 11:31 Urine Color Colorless A (Lt Yel-Yel) Urine Clarity Clear (Clear/Hazy) Urine pH 6.0 (5.0-7.0) Ur Specific [place] 1.008 (1.001-1.035) Urine Protein Negative (Neg - Trace) Urine Glucose (UA) 4+ A (Negative) Quality Measures Quality Measures none Advance care planning discussed with:: patient Medications Home Medications and Allergies Home Medications ?Medication ?Instructions ?Recorded ?Confirmed ?Type mirtazapine 30 mg tablet (Remeron) 30 mg PO HS #0 tabs 02/27/15 10/08/24 History finasteride 5 mg tablet 5 mg PO HS 04/05/20 10/08/24 History metformin 500 mg tablet 500 mg PO TID 04/05/20 10/08/24 History omeprazole 40 mg capsule,delayed 40 mg PO QDAY 04/05/20 10/08/24 History release hydrochlorothiazide 12.5 mg tablet 25 mg PO QDAY 01/25/21 10/08/24 History clonazepam 1 mg tablet (Klonopin) 0.5 mg PO HS PRN Anxiety 03/12/21 10/08/24 History gabapentin 300 mg capsule 300 mg PO HS 03/12/21 10/08/24 History losartan 100 mg tablet 100 mg PO QDAY 03/12/21 10/08/24 History doxazosin 2 mg tablet 2 mg PO HS 06/16/24 10/08/24 History amlodipine 10 mg tablet 10 mg PO HS 10/08/24 10/08/24 History glipizide 5 mg tablet 5 mg PO BID 10/08/24 10/08/24 History nortriptyline 10 mg capsule 20 mg PO HS 10/08/24 10/08/24 History Allergies Allergy/AdvReac Type Severity Reaction Status Date / Time bacitracin Allergy Severe Redness of Verified 08/27/24 10:41 [From Neosporin Skin ([id number])] neomycin Allergy Severe Redness of Verified 08/27/24 10:41 [From Neosporin Skin ([id number])] polymyxin B Allergy Severe Redness of Verified 08/27/24 10:41 [From Neosporin Skin ([id number])] Visit Medications Acetaminophen (Acetaminophen 325 Mg Tablet) 650 mg PO Q6H PRN PRN Reason: Fever >101.5 Stop: 11/06/24 07:45 Albuterol/Ipratropium (Albuterol/Ipratropium (Duoneb) Rt Ophelia 3 Ml Nebu) 3 ml INH Q6HRRT PREMA Stop: 11/06/24 12:59 Last Admin: 10/07/24 13:34 Dose: 3 ml Atorvastatin Calcium (Atorvastatin Calcium 20 Mg Tablet) 40 mg PO HS PREMA Stop: 11/06/24 20:59 Azithromycin (Azithromycin 250 Mg Tablet) 500 mg PO QDAY PREMA Stop: 10/15/24 08:59 Dextrose (Dextrose 50%-Water Inj 50 Ml Syringe) 25 ml IV Q15MIN PRN PRN Reason: BG 50-70 responsive npo pt Stop: 11/06/24 08:51 Dextrose (Dextrose 50%-Water Inj 50 Ml Syringe) 50 ml IV Q15MIN PRN PRN Reason: BG <50 OR BG <70 & pt unresponsive Stop: 11/06/24 08:51 Doxazosin Mesylate (Doxazosin Mesylate 2 Mg Tablet) 2 mg PO HS PREMA Stop: 11/06/24 20:59 Finasteride (Finasteride 5 Mg Tablet) 5 mg PO HS PREMA Stop: 11/06/24 20:59 Gabapentin (Gabapentin 300 Mg Capsule) 300 mg PO HS PREMA Stop: 11/06/24 20:59 Glucagon (Glucagon Inj 1 Mg Vial) 1 mg IM Q15MIN PRN PRN Reason: BG <70, and no IV access Heparin Sodium (Porcine) (Heparin Sod Inj 5000 Unit/Ml Vial) 5,000 unit SC Q12H PREMA Stop: 10/21/24 08:59 Last Admin: 10/07/24 09:33 Dose: 5,000 unit Ceftriaxone Sodium/Dextrose (Rocephin/D5w 1gm Iv Premix) 50 mls @ 100 mls/hr IV HS PREMA Stop: 10/14/24 20:59 Insulin Human Lispro (Insulin Lispro (Admelog) 1 Unit/0.01 Ml Unit) 0 unit SC AC PREMA; Protocol Stop: 11/06/24 11:29 Last Admin: 10/07/24 12:40 Dose: 2 unit Mirtazapine (Mirtazapine 15 Mg Tablet) 30 mg PO HS [facility] Stop: 11/06/24 20:59 Ondansetron HCl (Ondansetron Inj 2 Mg/Ml Inj 2 Ml) 4 mg IV Q6HR PRN; Protocol PRN Reason: NAUSEA OR VOMITING Stop: 11/06/24 09:07 Pantoprazole Sodium (Pantoprazole 40 Mg Tablet) 40 mg PO QDAY [facility] Stop: 11/06/24 09:14 Last Admin: 10/07/24 09:36 Dose: 40 mg Sennosides (Senna Tablet) 1 tab PO QDAY [facility]; Protocol Stop: 11/06/24 08:59 Last Admin: 10/07/24 08:27 Dose: 1 tab Discontinued Medications Acetaminophen (Acetaminophen 500 Mg Tablet) 1,000 mg PO X1 ONE Stop: 10/07/24 01:54 Last Admin: 10/07/24 02:03 Dose: 1,000 mg Albuterol/Ipratropium (Albuterol/Ipratropium (Duoneb) Rt Ophelia 3 Ml Nebu) 3 ml INH X1 ONE Stop: 10/07/24 01:46 Last Admin: 10/07/24 02:04 Dose: 3 ml Azithromycin (Azithromycin 250 Mg Tablet) 500 mg PO X1 ONE Stop: 10/07/24 01:47 Last Admin: 10/07/24 01:57 Dose: Not Given Furosemide (Furosemide Inj 10 Mg/Ml 4ml Vial) 40 mg IVP X1 ONE Stop: 10/07/24 08:47 Last Admin: 10/07/24 09:24 Dose: 40 mg Heparin Sodium (Porcine) (Heparin Sod Inj 5000 Unit/Ml Vial) 5,000 unit SC Q8HR PREMA Stop: 10/21/24 13:59 Ceftriaxone Sodium/Dextrose (Rocephin/D5w 1gm Iv Premix) 50 mls @ 100 mls/hr IV X1 ONE Stop: 10/07/24 02:16 Last Infusion: 10/07/24 02:59 Dose: Infused Sodium Chloride (Ns) 1,000 mls @ 999 mls/hr IV .Q1H1M ONE Stop: 10/07/24 02:54 Last Infusion: 10/07/24 04:06 Dose: Infused Sodium Chloride (Ns) 1,000 mls @ 999 mls/hr IV .Q1H1M ONE Stop: 10/07/24 02:54 Last Infusion: 10/07/24 04:06 Dose: Infused Azithromycin 500 mg/ Sodium (Chloride) 250 mls @ 250 mls/hr IV X1 ONE Stop: 10/07/24 09:59 Last Admin: 10/07/24 09:36 Dose: 250 mls/hr Sodium Chloride (Sodium Chloride Rt 10% 15 Ml Nebu) 5 ml INH X1 ONE Stop: 10/07/24 08:59 Last Admin: 10/07/24 10:06 Dose: Not Given Assessment & Plan Plan Summary: Mr. Boo is a 79-year-old male with past medical history of hypertension, diabetes mellitus, COPD (on 2 L oxygen at home) anxiety, dyslipidemia, GERD, obstructive sleep apnea (on CPAP at home), transient ischemic attack, spinal stenosis, chronic back pain and chronic kidney disease stage IIIa who presented to [facility] with a chief complaint of fever, cough and shortness of breath. Patient admitted for management of acute hypoxic respiratory failure secondary to suspected community-acquired pneumonia. # Acute hypoxic respiratory failure secondary to # Community-acquired pneumonia # Chronic obstructive pulmonary disease # SIRS (2/4) positive, suspicion of sepsis Patient presented with shortness of breath, cough, fever and tachypnea. Temp 103.8, RR 28 in ED, met SIRS criteria 2/4, source pulmonary as patient has increased oxygen requirements from baseline, diminished breath sounds in wheezing heard bilaterally in lungs. Initial lactic acid 3.2, was given 2 L NS in ED per sepsis protocol and sepsis alert was called in ED. Patient does not remember events leading to hospitalization. Patient has a history of COPD on albuterol at home, uses 2 L oxygen at home. Had recent sick contact for flu bedside flu and COVID-negative, RSV and strep B throat negative. Was given ceftriaxone and azithromycin in ED. continues to have increased oxygen requirement CURB-65 score: 5 points, highest risk group 27.8% 30-day mortality, PSI/PORT score: 195 points, risk class V 27.0-29.2 mortality hospitalization recommended based on risk Plan: -Started on ceftriaxone and azithromycin (10/07- -supplemental oxygen as needed -follow cocci serology, urine Legionella, MRSA nasal screen -Tylenol as needed -Follow-up blood culture -Follow urine culture -Follow sputum culture/Gram stain -Breathing treatment with DuoNebs every 6 hours scheduled -Follow CBC CMP in a.m. # Acute kidney injury on CKD stage IIIa Baseline creatinine 1.4, GFR 51 BUN 36, creatinine 2, GFR 33 on admission [facility] in setting of acute infection, sepsis. Was given 2 L fluid bolus in ED Plan: -Continue to monitor urine output -Strict DELFINO's -Monitor renal panel in a.m. -Dose medications renally -Avoid nephrotoxic medications # Vascular congestion Chest x-ray significant for vascular congestion, trace edema noted bilaterally No history of congestive heart failure, patient is on metoprolol succinate at home Patient follows up with Dr. Sweeney outpatient Plan: -Lasix 40 mg IV x 1 -Strict DELFINO -Daily weight -Ordered echo # Chronic normocytic normochromic anemia Patient's hemoglobin 10.9, hematocrit 31.3, RBC 3.39, MCV 92, MCH 32.2, MCHC 34.8. Suspicion of anemia of chronic disease -Monitor CBC in a.m. # Hypertension #Diabetes mellitus #Dyslipidemia #GERD #Obstructive sleep apnea #Chronic back pain # BPH -Will hold antihypertensives for now, patient's blood pressure soft -Follow hemoglobin A1c in a.m. -Lispro sliding scale insulin -Hypoglycemia protocol in place -Follow lipid panel in a.m. -CPAP at night -Gabapentin 300 mg at bedtime -Mirtazapine 30 mg at bedtime -Home medication doxazosin and finasteride resumed -Pending med reconciliation DVT prophylaxis: Heparin every 12 GI prophylaxis: Protonix p.o. Diet: Cardiac, carb consistent low Lines: Peripheral IV Code status: Full code Physical therapy: Ordered Case discussed with Attending physician Dr. Ruddy Mccoy PGY1 Attending Provider Attestation/Addendum Patient seen and examined with resident physician Dr. Mccoy. Note reviewed, agree with findings and recommendations.
[2024-10-07 13:52] LABS: Cocci Serology, IgM Negative (Negative)
--- NOTE | 2024-10-07 16:54 | PC.NURSE ---
DR BRISCOE CALLED AND INFORMED THAT HE HAS A CONSULT REQUEST FROM DR WHITTAKER. PATIENT IS IN [facility]. ASYPMTOMATIC. WILL COME TO SEE. NO ORDERS GIVEN
[2024-10-07] MEDS: MIRTAZAPINE 15 MG TABLET 30 MG PO (20:17)
[2024-10-07] MEDS: GABAPENTIN 300 MG CAPSULE PO (20:17)
[2024-10-07] MEDS: ATORVASTATIN CALCIUM 20 MG TABLET 40 MG PO (20:17)
[2024-10-07] MEDS: FINASTERIDE 5 MG TABLET PO (20:18)
[2024-10-07] MEDS: DOXAZOSIN MESYLATE 2 MG TABLET PO (20:18)
[2024-10-08] VITALS (14 sets, daily range): BP systolic 129–175; BP diastolic 69–90; PULSE 61–101; RESP 16–20; TEMP 36.2–36.5; O2SAT 92–100
[2024-10-08] MEDS: ALBUTEROL/IPRATROPIUM (Duoneb) RT SOL 3 ML NEBU INH ×4 (00:49→18:35)
[2024-10-08] MEDS: ACETAMINOPHEN 325 MG TABLET 650 MG PO (04:13)
[2024-10-08 05:56] LABS: Basophils % (Auto) 0 % (0-2.5); Eosinophils # (Auto) 0.2 Thou/mm3 (0.0-0.5); Eosinophils % (Auto) 4 % (0-10); Hematocrit 29.3 % (41.0-53.0); Hemoglobin 10.1 g/dL (13.5-16.0); Immature Granulocytes % (Auto) 0 % (0-0); Immature Granulocytes Auto 0.01 Thou/mm3 (0.00-0.00); Lymphocytes # (Auto) 1.3 Thou/mm3 (1.0-4.8); Lymphocytes % (Auto) 25 % (10-50); Mean Corpuscular HGB Conc 34.5 g/dl (31.0-37.0); Mean Corpuscular Hemoglobin 32.2 pg (25.0-35.0); Mean Corpuscular Volume 93 fL (80-100); Monocytes # (Auto) 0.5 Thou/mm3 (0.0-0.8); Monocytes % (Auto) 9 % (0-12); Neutrophils # (Auto) 3.1 Thou/mm3 (1.8-7.7); Neutrophils % (Auto) 62 % (37-80); Nucleated Red Blood Cell % 0 /100 WBC (0); Platelet Count 170 Thou/mm3 (140-440); Red Blood Count 3.14 Miln/mm3 (4.50-5.90); White Blood Count 5.1 Thou/mm3 (3.8-10.6)
[2024-10-08 06:28] LABS: Alanine Aminotransferase 25 U/L (10-49); Albumin, Serum 4.1 gm/dL (3.4-4.8); Albumin/Globulin Ratio 2.1 (1.2-2.2); Alkaline Phosphatase 64 U/L (46-116); Anion Gap 10 (7-16); Aspartate Amino Transferase 21 U/L (0-34); BUN/Creatinine Ratio 18 Ratio (12-20); Bilirubin,Total 0.2 mg/dL (0.3-1.2); Blood Urea Nitrogen 32 mg/dL (9-23); Calcium 9.1 mg/dL (8.3-10.6); Calcium (Corrected) 9.1 mg/dL (8.5-10.1); Carbon Dioxide 22.5 mMol/L (20.0-31.0); Chloride 104 mMol/L (98-107); Cholesterol 205 mg/dL (132-200); Creatinine (Component) 1.8 mg/dL (0.6-1.3); Free T4 (Free Thyroxine) 0.78 ng/dL (0.89-1.76); Glucose 146 mg/dL (74-106); HDL Cholesterol 51 mg/dL (40-60); LDL Cholesterol,Calculated 82 mg/dL (0-130); Osmolality,Calculated 281 (275-295); Phosphorous 3.3 mg/dL (2.4-5.1); Potassium 3.9 mMol/L (3.4-5.1); Sodium 136 mMol/L (136-145); Thyroid Stimulating Hormone 2.71 uIU/mL (0.55-4.78); Total Protein 6.1 gm/dL (5.7-8.2); Triglycerides 358 mg/dL (30-150); eGFR 38 See Note
[2024-10-08 07:34] LABS: Glucose Estimated Average 183 mg/dL (80-131)
[2024-10-08] MEDS: INSULIN LISPRO (AdmeLOG) 1 UNIT/0.01 ML UNIT SC ×3 (07:51→16:48)
[2024-10-08] MEDS: PANTOPRAZOLE 40 MG TABLET PO (08:34)
[2024-10-08] MEDS: SENNA TABLET 1 TAB PO (08:34)
[2024-10-08] MEDS: AZITHROMYCIN 250 MG TABLET 500 MG PO (08:34)
[2024-10-08] MEDS: HEPARIN SOD INJ 5000 UNIT/ML VIAL SC (08:34)
--- NOTE | 2024-10-08 08:49 | ESPR_ITS ---
Documented by User: Carlene Fox MD 10/09/24 18:58 Documentation for date of: 10/08/24 Exam Vital Signs Temp Pulse Resp BP Pulse Ox O2 Del Method O2 Flow Rate 36.4 C 92 18 154/81 H 94 L Nasal Cannula 2 10/08/24 08:00 10/08/24 08:00 10/08/24 08:00 10/08/24 08:00 10/08/24 08:00 10/08/24 08:00 10/08/24 08:00 Objective Labs 10/09/24 05:27 10/09/24 05:27 Labs: Laboratory Results - last 24 hr 10/07/24 10/07/24 10/08/24 05:00 11:31 04:59 WBC 5.1 RBC 3.14 L Hgb 10.1 L Hct 29.3 L MCV 93 MCH 32.2 MCHC 34.5 RDW Std Deviation 48.0 H Plt Count 170 Neut % (Auto) 62 Lymph % (Auto) 25 [place] % (Auto) 9 Eos % (Auto) 4 Baso % (Auto) 0 Neut # (Auto) 3.1 Lymph # (Auto) 1.3 [place] # (Auto) 0.5 Eos # (Auto) 0.2 Baso # (Auto) 0.0 Immature Gran # (Auto) 0.01 H Absolute Nucleated RBC 0.00 Immature Gran % 0 Nucleated RBC % 0 Sodium 136 Potassium 3.9 Chloride 104 Carbon Dioxide 22.5 Anion Gap 10 BUN 32 H Creatinine 1.8 H Estim Creat Clear Calc 41.0 L eGFR 38 L BUN/Creatinine Ratio 18 Glucose [address] Glu mg/dL 183 H Hemoglobin A1c 8.0 H Calculated Osmolality 281 Calcium 9.1 Corrected Calcium 9.1 Phosphorus 3.3 Magnesium 2.0 Total Bilirubin 0.2 L AST 21 ALT 25 Alkaline Phosphatase 64 D Total Protein 6.1 Albumin 4.1 Globulin 2.0 L Albumin/Globulin Ratio 2.1 Triglycerides 358 H Cholesterol 205 H LDL Cholesterol, Calc 82 HDL Cholesterol 51 Cholesterol/HDL Ratio 4.0 TSH 2.71 D Free T4 0.78 L Ur Collection Type Clean Catch Urine Color Colorless A Urine Clarity Clear Urine pH 6.0 Ur Specific [place] 1.008 Urine Protein Negative Urine Glucose (UA) 4+ A Urine Ketones Negative Urine Blood Negative Urine Nitrite Negative Urine Bilirubin Negative Urine Urobilinogen (Auto) Negative Ur Leukocyte Esterase Negative Urine RBC 1 Urine WBC 0 Ur Squamous Epith Cells 0 Urine Bacteria None Coccidioides IgM Ab Negative Assessment & Plan Additional Assessment & Plan Additional Plan: Summary: Mr. Boo is a 79-year-old male with past medical history of hypertension, diabetes mellitus, COPD (on 2 L oxygen at home) anxiety, dyslipidemia, GERD, obstructive sleep apnea (on CPAP at home), transient ischemic attack, spinal stenosis, chronic back pain and chronic kidney disease stage IIIa who presented to [facility] with a chief complaint of fever, cough and shortness of breath. Patient admitted for management of acute hypoxic respiratory failure secondary to suspected community-acquired pneumonia. # Acute hypoxic respiratory failure secondary to # Community-acquired pneumonia # Chronic obstructive pulmonary disease # SIRS (2/4) positive, suspicion of sepsis Patient presented with shortness of breath, cough, fever and tachypnea. Temp 103.8, RR 28 in ED, met SIRS criteria 2/4, source pulmonary as patient has increased oxygen requirements from baseline, diminished breath sounds in wheezing heard bilaterally in lungs. Initial lactic acid 3.2, was given 2 L NS in ED per sepsis protocol and sepsis alert was called in ED. Patient does not remember events leading to hospitalization. Patient has a history of COPD on albuterol at home, uses 2 L oxygen at home. Had recent sick contact for flu bedside flu and COVID-negative, RSV and strep B throat negative. Was given ceftriaxone and azithromycin in ED. continues to have increased oxygen requirement CURB-65 score: 5 points, highest risk group 27.8% 30-day mortality, PSI/PORT score: 195 points, risk class V 27.0-29.2 mortality hospitalization recommended based on risk Blood culture, urine culture, sputum Gram stain, MRSA nasal screen, cocci negative Plan: -Continue ceftriaxone and azithromycin (10/07- -supplemental oxygen as needed -follow urine Legionella -Tylenol as needed -Follow-up blood culture -Follow urine culture -Follow sputum culture/Gram stain -Breathing treatment with DuoNebs every 6 hours scheduled -Follow CBC CMP in a.m. # Atrial flutter/fibrillation with controlled ventricular response Patient had episode of atrial fibrillation/flutter with controlled ventricular response, cardiology was consulted. Echocardiogram obtained, shows ejection fraction of 65 to 70%. Plan: -Patient started on metoprolol tartrate 50 mg twice daily -CHADVASC score 4, started on Eliquis 2.5 mg twice daily -Consulted cardiology, appreciate recommendations # Acute kidney injury on CKD stage IIIa Baseline creatinine 1.4, GFR 51 BUN 36, creatinine 2, GFR 33 on admission [facility] in setting of acute infection, sepsis. Was given 2 L fluid bolus in ED Plan: -Continue to monitor urine output -Strict DELFINO's -Monitor renal panel in a.m. -Dose medications renally -Avoid nephrotoxic medications # Vascular congestion Chest x-ray significant for vascular congestion, trace edema noted bilaterally No history of congestive heart failure, patient is on metoprolol succinate at home Patient follows up with Dr. Sweeney outpatient Echo shows EF 65 to 70%, was given Lasix 40 mg x 1 on admission Plan: -Strict DELFINO -Daily weight -Consulted cardiology, appreciate recommendations # Chronic normocytic normochromic anemia Patient's hemoglobin 10.9, hematocrit 31.3, RBC 3.39, MCV 92, MCH 32.2, MCHC 34.8. Suspicion of anemia of chronic disease -Monitor CBC in a.m. # Hypertension #Diabetes mellitus #Dyslipidemia #GERD #Obstructive sleep apnea #Chronic back pain # BPH -Will hold antihypertensives for now, patient's blood pressure soft -Follow hemoglobin A1c in a.m. -Lispro sliding scale insulin -Hypoglycemia protocol in place -Follow lipid panel in a.m. -CPAP at night -Gabapentin 300 mg at bedtime -Mirtazapine 30 mg at bedtime -Home medication doxazosin and finasteride resumed DVT prophylaxis: Eliquis GI prophylaxis: Protonix p.o. Diet: Cardiac, carb consistent low Lines: Peripheral IV Code status: Full code Physical therapy: Completed Case discussed with Attending physician Dr. Ruddy Mccoy PGY1 Patient seen and examined with resident physician Dr. Mccoy. Note reviewed, agree with findings and recommendations. Documented by User: Mckenzie Mccoy MD 10/09/24 13:09 Subjective Subjective Interval history: Mr. Boo is a 79-year-old male with past medical history of hypertension, diabetes mellitus, COPD (on 2 L oxygen at home) anxiety, dyslipidemia, GERD, obstructive sleep apnea (on CPAP at home), transient ischemic attack, spinal stenosis, chronic back pain and chronic kidney disease stage IIIa who presented to [facility] with a chief complaint of fever, cough and shortness of breath. According to the patient his symptoms started 2 to 3 days ago when he started reporting generalized weakness, today in morning patient reported fevers and chills, reports he does not remember much except that he was brought to the hospital by paramedics because of high temperature. Per chart review patient's in the ED provided history that patient started experiencing shortness of breath and dry cough earlier this morning along with fever and generalized weakness, reported sick contact, patient's daughter nurse by profession positive for flu. Also per patient's at midnight and today patient screamed while in bed and got up to use the restroom, was unable to make it to restroom and urinated on himself followed by an episode of nonbloody emesis. ED Course: Sepsis alert called in the ED, patient met SIRS criteria 2/4 with source of infection suspected pulmonary due to acute hypoxic respiratory failure ED Vitals: On presentation BP 148/77, P 90, RR 28, temp 103.8, O2 sat 96 on 4 L nasal cannula ED Labs: Patient's labs on presentation significant for RBC 3.39, hemoglobin 10.9, hematocrit 31.3, sodium 134, BUN 36, creatinine 2.0, GFR 33, glucose 262, lactic acid 3.2 BNP 134, globulin 2.2. RSV, group A strep bedside COVID and bedside flu negative ED Imaging: Chest x-ray in ED shows moderate vascular congestion and head CT negative for any acute findings ED Treatment: Patient was given ceftriaxone and azithromycin in ED, Tylenol 1000 mg, 2 L NS and breathing treatment with albuterol/ipratropium Home medications: Reports taking gabapentin 300 mg at bedtime, simvastatin 40 mg at bedtime, doxazosin 2 mg at bedtime, finasteride 5 mg at bedtime, mirtazapine 30 mg at bedtime, metoprolol succinate 50 mg, omeprazole 20 mg, hydrochlorothiazide 25 daily, metformin 500 3 times daily, glipizide twice daily Patient admitted for management of acute hypoxic respiratory failure secondary to suspected community-acquired pneumonia. 12/13/24: Patient seen at bedside, patient had episode of atrial flutter/fibrillation with controlled ventricular response, patient was started on metoprolol, cardiology was consulted, patient's [id number] score 4, was started on Eliquis 2.5 mg twice daily. Otherwise patient has no current complaints, denies shortness of breath, saturating well on 2 L. Patient requesting discharge, discussed with patient extensively about the need of continued observation and continued treatment of pneumonia Review of Systems Review of Systems Narrative Review of Systems: ROS: -CONSTITUTIONAL: Denies weight loss, positive for fever and chills. -HEENT: Denies changes in vision and hearing. -RESPIRATORY: Positive for SOB and cough. -CV: Denies palpitations and Chest Pain. -GI: Denies abdominal pain, nausea and diarrhea. Positive for constipation and vomiting. -: Denies dysuria and urinary frequency. -MSK: Denies myalgia and joint pain. -SKIN: Denies rash and pruritus. -NEUROLOGICAL: Denies headache and syncope. -PSYCHIATRIC: Denies recent changes in mood. Denies anxiety and depression. Exam Narrative Exam Physical Exam General: Awake and in no acute distress. Conversational and non-toxic appearing. HEENT: Normocephalic, atraumatic, mucous membranes moist. Heart: Regular rate and irregular rhythm, no murmurs. Lungs: Diminished breath sounds bilaterally, wheezing bilaterally, saturating 95% on 2 L nasal cannula, no crackles. Abdomen: Soft, obese, nondistended, nontender, positive bowel sounds. ?No guarding or rebound tenderness. Neurologic: Alert and oriented x3, no gross neurological deficit, and patient able to move all 4 extremities. Extremities: Trace edema noted bilaterally. Skin: No rash or ecchymoses. Objective Labs 10/09/24 05:27 10/09/24 05:27 Assessment & Plan Additional Assessment & Plan Additional Plan: Summary: Mr. Boo is a 79-year-old male with past medical history of hypertension, diabetes mellitus, COPD (on 2 L oxygen at home) anxiety, dyslipidemia, GERD, obstructive sleep apnea (on CPAP at home), transient ischemic attack, spinal stenosis, chronic back pain and chronic kidney disease stage IIIa who presented to [facility] with a chief complaint of fever, cough and shortness of breath. Patient admitted for management of acute hypoxic respiratory failure secondary to suspected community-acquired pneumonia. # Acute hypoxic respiratory failure secondary to # Community-acquired pneumonia # Chronic obstructive pulmonary disease # SIRS (2/4) positive, suspicion of sepsis Patient presented with shortness of breath, cough, fever and tachypnea. Temp 103.8, RR 28 in ED, met SIRS criteria 2/4, source pulmonary as patient has increased oxygen requirements from baseline, diminished breath sounds in wheezing heard bilaterally in lungs. Initial lactic acid 3.2, was given 2 L NS in ED per sepsis protocol and sepsis alert was called in ED. Patient does not remember events leading to hospitalization. Patient has a history of COPD on albuterol at home, uses 2 L oxygen at home. Had recent sick contact for flu bedside flu and COVID-negative, RSV and strep B throat negative. Was given ceftriaxone and azithromycin in ED. continues to have increased oxygen requirement CURB-65 score: 5 points, highest risk group 27.8% 30-day mortality, PSI/PORT score: 195 points, risk class V 27.0-29.2 mortality hospitalization recommended based on risk Blood culture, urine culture, sputum Gram stain, MRSA nasal screen, cocci negative Plan: -Continue ceftriaxone and azithromycin (10/07- -supplemental oxygen as needed -follow urine Legionella -Tylenol as needed -Follow-up blood culture -Follow urine culture -Follow sputum culture/Gram stain -Breathing treatment with DuoNebs every 6 hours scheduled -Follow CBC CMP in a.m. # Atrial flutter/fibrillation with controlled ventricular response Patient had episode of atrial fibrillation/flutter with controlled ventricular response, cardiology was consulted. Echocardiogram obtained, shows ejection fraction of 65 to 70%. Plan: -Patient started on metoprolol tartrate 50 mg twice daily -CHADVASC score 4, started on Eliquis 2.5 mg twice daily -Consulted cardiology, appreciate recommendations # Acute kidney injury on CKD stage IIIa Baseline creatinine 1.4, GFR 51 BUN 36, creatinine 2, GFR 33 on admission BALBIR in setting of acute infection, sepsis. Was given 2 L fluid bolus in ED Plan: -Continue to monitor urine output -Strict DELFINO's -Monitor renal panel in a.m. -Dose medications renally -Avoid nephrotoxic medications # Vascular congestion Chest x-ray significant for vascular congestion, trace edema noted bilaterally No history of congestive heart failure, patient is on metoprolol succinate at home Patient follows up with Dr. Sweeney outpatient Echo shows EF 65 to 70%, was given Lasix 40 mg x 1 on admission Plan: -Strict DELFINO -Daily weight -Consulted cardiology, appreciate recommendations # Chronic normocytic normochromic anemia Patient's hemoglobin 10.9, hematocrit 31.3, RBC 3.39, MCV 92, MCH 32.2, MCHC 34.8. Suspicion of anemia of chronic disease -Monitor CBC in a.m. # Hypertension #Diabetes mellitus #Dyslipidemia #GERD #Obstructive sleep apnea #Chronic back pain # BPH -Will hold antihypertensives for now, patient's blood pressure soft -Follow hemoglobin A1c in a.m. -Lispro sliding scale insulin -Hypoglycemia protocol in place -Follow lipid panel in a.m. -CPAP at night -Gabapentin 300 mg at bedtime -Mirtazapine 30 mg at bedtime -Home medication doxazosin and finasteride resumed DVT prophylaxis: Eliquis GI prophylaxis: Protonix p.o. Diet: Cardiac, carb consistent low Lines: Peripheral IV Code status: Full code Physical therapy: Completed Case discussed with Attending physician Dr. Ruddy Mccoy PGY1
--- NOTE | 2024-10-08 09:20 | PC.SS ---
Initial assessment: This is 79 year old male admitted for pneumonia. Patient appeared alert and oriented during encounter. Patient informs he lives at home with his spouse, Lillian Boo. Patient confirmed demographic information. Patient assigned his , Lillian Boo as his alternate medical surrogate decision maker. Patient describes to be independent with ADL's. Patient informs he utilizes home oxygen, on 2L during the night. Patient's PCP is Dr. Carlene Fox. The discharge plan was discussed, and the patient would like return home. Patient informs his is able to assist with transportation home. No needs identified at this time. D/c plan: home Next of kin: spouse, Lillian Boo
[2024-10-08 13:18] LABS: Cocci Serology, IgG Negative (Negative)
--- NOTE | 2024-10-08 15:10 | ESCONSULT_ITS ---
RE: JANAE ROCK : 1945 DATE OF CONSULTATION: 10/08/2024 CONSULTING PHYSICIANS: Carlene Fox MD, and hospitalist and resident team REASON FOR CONSULTATION: Evaluation of atrial flutter, paroxysmal episode. HISTORY OF PRESENT ILLNESS: The patient is an 79-year-old male, very well known to me, has a longstanding history of [id number] hypertension, chronic obstructive pulmonary disease, presented to the hospital with shortness of breath, fever, and cough. The patient was given IV fluids in the emergency room, increasing shortness of breath, given a dose of diuretic with improvement of symptoms. While on the telemetry, the patient was found to have paroxysmal atrial flutter with intermittent atrial flutter with normal heart rate of 80 beats per minute, variable block. The patient has a longstanding history of hypertension, diabetes, COPD, and obstructive sleep apnea on CPAP at home as well as chronic back pain, back problems, CKD stage III, and TIAS. The patient is feeling a little better, but still has some palpitations occasionally, but no chest pain is reported. The patient did have a complete cardiac workup. Echocardiogram showed normal ejection fraction of 60%. Nuclear scan showed no ischemia,this is only in the last few weeks. The patient initially had met criteria for CIRS 2/4, hence the patient was treated aggressively with antibiotics and cultures were obtained. The patient was started on ceftriaxone and azithromycin etiology. ALLERGIES: NONE. MEDICATIONS: At home, he takes multiple medications including Remeron 30 mg at bedtime, simvastatin 40 daily, aspirin 81 daily, metformin 500 mg daily for diabetes, omeprazole 40 mg daily, hydrochlorothiazide 12.5 daily, and gabapentin 300 mg daily for neuropathy symptoms and takes inhalers as well and metoprolol 50 mg once a day and doxazosin 2 mg daily. PAST MEDICAL HISTORY: Hypertension, chronic obstructive lung disease, sleep apnea on CPAP, chronic back problems, back pain, back surgery, chronic obstructive pulmonary disease. SOCIAL HISTORY: The patient was a chronic smoker, does not currently smoke or drink alcohol abuse. FAMILY HISTORY: Noncontributory. REVIEW OF SYSTEMS: CARDIOVASCULAR: No chest pain. No palpitations. : No sinus rhythm. No frequency. PHYSICAL EXAMINATION: GENERAL: Pleasant male who is alert and awake in no distance. VITAL SIGNS: His blood pressure is 157/75, pulse rate 88, respiratory rate is 20, temperature normal. HEENT: Head is atraumatic and normocephalic. Eyes normal. ENT: Unremarkable. NECK: Supple. No JVD. Carotid pulses felt. No bruit. CHEST: Symmetrical. LUNGS: Decreased breath sounds at both bases. No bilateral expiratory wheezes. HEART: S1 and S2, regular. Atrial flutter. No gallops. ABDOMEN: Thin and soft. EXTREMITIES: No edema. GENITOURINARY AND RECTAL: Not performed. BOILERMAKER APPRENTICE: Normal. DIAGNOSTIC DATA: Electrocardiogram shows evidence of what appears to be atrial tachycardia, atrial flutter with variable block with rate of 60 beats per minute. ASSESSMENT: 1. Atrial flutter fibrillation with controlled ventricular response. 2. Hypertension. 3. Chronic obstructive lung disease. 4. Sleep apnea on CPAP. 5. Diabetes mellitus type 2. 6. Hypercholesterolemia. RECOMMENDATIONS: The patient clearly has atrial flutter paroxysmal episodes, mostly in atrial flutter, sometimes going back to sinus rhythm as well. He has a CHADS-VASc score of 4, hence recommending anticoagulation unless there is any contraindication. We will start the patient on Eliquis with renal adjustment, so the patient will create a 1.8, 2.5 mg twice daily, Eliquis will be started for anticoagulation and if rates controlled well with metoprolol for now. Continue the metoprolol for rate control. I would like to thank for referring this patient for cardiovascular evaluation. We will be glad to follow the patient as an outpatient. DT: 12:48:51 TT: 15:09:00 Ref: [id number] - TID: [id number]
--- NOTE | 2024-10-08 16:50 | PC.PT ---
PT eval only. Patient is xI with bed mobility, transfers, and ambulation with no DME while on room air. Patient is at his PLOF.
[2024-10-08] MEDS: DOXAZOSIN MESYLATE 2 MG TABLET PO (19:24)
[2024-10-08] MEDS: ATORVASTATIN CALCIUM 20 MG TABLET 40 MG PO (20:53)
[2024-10-08] MEDS: MIRTAZAPINE 15 MG TABLET 30 MG PO (20:54)
[2024-10-08] MEDS: GABAPENTIN 300 MG CAPSULE PO (20:54)
[2024-10-08] MEDS: APIXABAN 2.5 MG TABLET PO (20:55)
[2024-10-08] MEDS: FINASTERIDE 5 MG TABLET PO (20:55)
[2024-10-08] MEDS: cefTRIAXone/D5w 1gm IV premix 50 ML IV (20:58)
[2024-10-08] MEDS: METOPROLOL TARTRATE 25 MG TABLET 50 MG PO (22:38)
[2024-10-09] VITALS: BP 160/84; PULSE 78; PULSE 89; RESP 19; TEMP 36.6; O2SAT 94
[2024-10-09 01:12] VITALS: PULSE 76; PULSE 78; RESP 20; O2SAT 98; O2SAT 99
[2024-10-09] MEDS: ALBUTEROL/IPRATROPIUM (Duoneb) RT SOL 3 ML NEBU INH ×2 (01:12→06:10)
[2024-10-09 04:00] VITALS: BP 158/76; PULSE 77; PULSE 78; RESP 17; TEMP 36.9; O2SAT 96
[2024-10-09 06:00] VITALS: BMI 32.4
[2024-10-09 06:11] VITALS: PULSE 80; PULSE 82; RESP 20; O2SAT 94; O2SAT 99
[2024-10-09 06:45] LABS: Basophils % (Auto) 0 % (0-2.5); Eosinophils # (Auto) 0.4 Thou/mm3 (0.0-0.5); Eosinophils % (Auto) 8 % (0-10); Hematocrit 32.8 % (41.0-53.0); Hemoglobin 10.9 g/dL (13.5-16.0); Immature Granulocytes % (Auto) 0 % (0-0); Immature Granulocytes Auto 0.02 Thou/mm3 (0.00-0.00); Lymphocytes # (Auto) 1.5 Thou/mm3 (1.0-4.8); Lymphocytes % (Auto) 33 % (10-50); Mean Corpuscular HGB Conc 33.2 g/dl (31.0-37.0); Mean Corpuscular Hemoglobin 31.6 pg (25.0-35.0); Mean Corpuscular Volume 95 fL (80-100); Monocytes # (Auto) 0.5 Thou/mm3 (0.0-0.8); Monocytes % (Auto) 10 % (0-12); Neutrophils # (Auto) 2.2 Thou/mm3 (1.8-7.7); Neutrophils % (Auto) 48 % (37-80); Nucleated Red Blood Cell % 0 /100 WBC (0); Platelet Count 219 Thou/mm3 (140-440); RDW Standard Deviation 47.8 fL (35.1-43.9); Red Blood Count 3.45 Miln/mm3 (4.50-5.90); White Blood Count 4.5 Thou/mm3 (3.8-10.6)
[2024-10-09 07:11] LABS: Alanine Aminotransferase 30 U/L (10-49); Albumin, Serum 4.4 gm/dL (3.4-4.8); Alkaline Phosphatase 70 U/L (46-116); Anion Gap 9 (7-16); Aspartate Amino Transferase 24 U/L (0-34); BUN/Creatinine Ratio 16 Ratio (12-20); Bilirubin,Total 0.3 mg/dL (0.3-1.2); Blood Urea Nitrogen 25 mg/dL (9-23); Calcium 9.4 mg/dL (8.3-10.6); Calcium (Corrected) 9.4 mg/dL (8.5-10.1); Carbon Dioxide 25.3 mMol/L (20.0-31.0); Chloride 103 mMol/L (98-107); Creatinine (Component) 1.6 mg/dL (0.6-1.3); Estimated Creatinine Clearance 45.5 mL/min (>60); Globulin 2.2 gm/dL (2.3-3.5); Glucose 192 mg/dL (74-106); Osmolality,Calculated 283 (275-295); Potassium 4.1 mMol/L (3.4-5.1); Sodium 137 mMol/L (136-145); Total Protein 6.6 gm/dL (5.7-8.2); eGFR 43 See Note
[2024-10-09 07:49] VITALS: BP 174/81; PULSE 83; RESP 20; TEMP 36.3; O2SAT 95
[2024-10-09 08:22] VITALS: BP 166/70; PULSE 89
[2024-10-09] MEDS: AZITHROMYCIN 250 MG TABLET 500 MG PO (08:22)
[2024-10-09] MEDS: METOPROLOL TARTRATE 25 MG TABLET 50 MG PO (08:22)
[2024-10-09] MEDS: PANTOPRAZOLE 40 MG TABLET PO (08:22)
[2024-10-09] MEDS: APIXABAN 2.5 MG TABLET PO (08:22)
[2024-10-09] MEDS: SENNA TABLET 1 TAB PO (08:23)
[2024-10-09] MEDS: INSULIN LISPRO (AdmeLOG) 1 UNIT/0.01 ML UNIT SC (08:25)
--- NOTE | 2024-10-09 09:27 | ESDS_ITS ---
Planned Discharge Date 10/09/24 DS: Providers Provider Date of admission: 10/07/24 07:41 Primary care physician: Carlene Fox MD Admitting Provider: Carlene Fox MD Attending Provider on Admission: Carlene Fox MD Consults: 10/07/24 09:17 Referral Physical Therapy Routine Comment: Physician Instructions: 10/07/24 16:44 Consult to Cardiology Stat Comment: [facility] Consulting Provider: Mayte Sweeney Instructions: PATIENT WITH HX OF A-FIB, IN ATRAIL FLUTTER Attending Provider on DC: Carlene Fox MD Discharging Provider: Carlene Fox MD DS: Diagnosis Problem List Completed Was Problem List Reviewed/Reconciled?: Yes Hospital Course Hospital Course Hospital course: Hospital course: Mr. Boo is a 79-year-old male with past medical history of hypertension, diabetes mellitus, COPD (on 2 L oxygen at home) anxiety, dyslipidemia, GERD, obstructive sleep apnea (on CPAP at home), transient ischemic attack, spinal stenosis, chronic back pain and chronic kidney disease stage IIIa who presented to [facility] with a chief complaint of fever, cough and shortness of breath. Patient had increased oxygen need, was placed on supplemental oxygen, started on IV antibiotics due to concern of pneumonia. Patient's blood culture, urine culture, Gram stain negative. During hospitalization patient's course was complicated by atrial fibrillation/flutter with controlled ventricular response, was started on metoprolol, cardiology was consulted, was started on Eliquis 2.5 twice daily. Otherwise patient's cond ition improved with the progression of hospital course, patient oxygen requirement back to baseline of 2 L, sinus rhythm noted on telemetry, further plan is to discharge patient home on Augmentin. Patient to continue metoprolol and Eliquis and follow-up with cardiology in 1 to 2 weeks, patient to follow-up outpatient in clinic in 1 to 2 weeks. Patient is stable for discharge, patient responded well to hospital treatment. Discharge diagnosis: # Acute hypoxic respiratory failure secondary to # Community-acquired pneumonia # Chronic obstructive pulmonary disease # SIRS (2/4) positive, sepsis ruled out # Atrial flutter/fibrillation with controlled ventricular response # Acute kidney injury on CKD stage IIIa, resolved # Vascular congestion # Chronic normocytic normochromic anemia # Hypertension # Diabetes mellitus # Dyslipidemia # GERD # Obstructive sleep apnea # Chronic back pain # BPH Case discussed with Attending Dr. Fox. Mckenzielourdes Mccoy PGY1 Status at Discharge Functional status at discharge: independent ambulation Overall status at discharge: patient is back to baseline Time Spent with Patient Time attestation: Total time spent providing and/or coordinating discharge services: Greater than 30 minutes Time spent: Greater than 30 minutes Exam Vital Signs Temp Pulse Resp BP Pulse Ox O2 Del Method O2 Flow Rate 97.3 F 89 20 166/70 H 95 Nasal Cannula 2 10/09/24 07:49 10/09/24 08:22 10/09/24 07:49 10/09/24 08:22 10/09/24 07:49 10/09/24 07:49 10/09/24 07:49 Narrative Exam Physical Exam General: Awake and in no acute distress. Conversational and non-toxic appearing. HEENT: Normocephalic, atraumatic, mucous membranes moist. Heart: Regular rate and irregular rhythm, no murmurs. Lungs: Diminished breath sounds bilaterally, wheezing bilaterally, saturating 95% on 2 L nasal cannula, no crackles. Abdomen: Soft, obese, nondistended, nontender, positive bowel sounds. ?No guarding or rebound tenderness. Neurologic: Alert and oriented x3, no gross neurological deficit, and patient able to move all 4 extremities. Extremities: Trace edema noted bilaterally. Skin: No rash or ecchymoses. Discharge Plan Plan Patient Disposition: HOME (Self Care) Patient condition on transfer: Stable Care Plan Goals: Start Metoprolol Tartarate 50mg BID. Start Eliquis 2.5mg BID. Complete antibiotic therapy with augmentin. Return to ED if your symptoms worsen. Follow up with Dr Fox in office in 1-2 weeks. Follow up with [facility] Dr Sweeney in 1-2 weeks. Prescriptions/Referrals Prescriptions/Med Rec: New atorvastatin 20 mg Tablet 40 mg PO HS Qty: 30 0RF metoprolol tartrate 25 mg Tablet 50 mg PO BID 60 Days Qty: 240 0RF Eliquis 2.5 mg Tablet 2.5 mg PO BID Qty: 60 0RF amoxicillin-pot clavulanate [Augmentin] 500-125 mg tablet 1 tab PO BID Qty: 14 0RF Continued mirtazapine [Remeron] 30 MG tablet 30 mg PO HS Qty: 0 omeprazole 40 mg Capsule,Delayed Release(Dr/Ec) 40 mg PO QDAY finasteride 5 mg Tablet 5 mg PO HS metformin 500 mg Tablet 500 mg PO TID hydrochlorothiazide 12.5 mg Tablet 25 mg PO QDAY clonazepam [Klonopin] 1 mg tablet 0.5 mg PO HS PRN (Reason: Anxiety) gabapentin 300 mg capsule 300 mg PO HS Patient Comments: TAKE 1 CAPSULE BY MOUTH EVERY DAY losartan 100 mg tablet 100 mg PO QDAY Patient Comments: TAKE 1 TABLET BY MOUTH EVERY DAY amlodipine 10 mg tablet 10 mg PO HS Patient Comments: TAKE 1 TABLET BY MOUTH EVERY EVENING nortriptyline 10 mg capsule 20 mg PO HS Patient Comments: TAKE 2 CAPSULES BY MOUTH AT BEDTIME glipizide 5 mg tablet 5 mg PO BID Patient Comments: TAKE 1 TABLET BY MOUTH TWICE A DAY doxazosin 2 mg Tablet 2 mg PO HS Discontinued simvastatin [Zocor] 40 MG tablet 40 mg PO QPM Qty: 0 metoprolol succinate 50 mg tablet extended release 24 hr 50 mg PO HS Patient Comments: TAKE 1 TABLET BY MOUTH EVERYDAY AT BEDTIME metoprolol succinate 50 mg tablet extended release 24 hr 50 mg PO QDAY Patient Comments: TAKE 1 TABLET BY MOUTH TWICE A DAY Referrals: Carlene Fox MD [Primary Care Provider] - Patient/Caregiver Discharge Instructions Discharge Activity: activity as tolerated Other Discharge Activity Instructions:: Start Metoprolol Tartarate 50mg BID. Start Eliquis 2.5mg BID. Complete antibiotic therapy with augmentin. Return to ED if your symptoms worsen. Follow up with Dr Fox in office in 1-2 weeks. Follow up with [facility] Dr Sweeney in 1-2 weeks. Other Discharge Diet Instructions: Low sodium, low carbohydrate diet Education Materials: What Is Pneumonia?, Treating Pneumonia Print Language: [place] Activity Restrictions/Additional Instructions: f/u with Dr. Fox, Dr. Sweeney in 1-2 weeks Stand Alone Forms: Lauren Award Info., Patient Portal Info Letter Discharge Order Discharge Orders: Discharge (Routine); Ordered 10/09/24 Ordered By: Carlene Fox Quality Discharge Quality Measures VTE prophylaxis and sepsis (Ruled out) Attestestation MD Attestation Patient seen and examined with resident physician Dr. Mccoy. Note reviewed, agree with findings and recommendations.
[2024-10-11 06:59] LABS: Legionella Ag, EIA, Urine* NOT DETECTED
== END 2024-10-09 10:22 | disposition home or self-care (01) | DRG 193 ==
LOC: SERX 03:36 → SERHOLD 08:06 → S3NX 12:00
PROVIDERS: Student in an Organized Health Care Education/Training Program; Admitting Provider Internal Medicine; Emergency Provider Emergency Medicine; PCP Internal Medicine; Visit Provider Internal Medicine
DX: J18.9 Pneumonia, unspecified organism (principal); J96.01 Acute respiratory failure with hypoxia; J44.0 Chronic obstructive pulmonary disease with (acute) lower respiratory infection; I48.92 Unspecified atrial flutter; N17.9 Acute kidney failure, unspecified; G47.33 Obstructive sleep apnea (adult) (pediatric); G89.29 Other chronic pain; E11.22 Type 2 diabetes mellitus with diabetic chronic kidney disease; F41.9 Anxiety disorder, unspecified; N18.30 Chronic kidney disease, stage 3 unspecified; E11.40 Type 2 diabetes mellitus with diabetic neuropathy, unspecified; K21.9 Gastro-esophageal reflux disease without esophagitis; D63.1 Anemia in chronic kidney disease; I12.9 Hypertensive chronic kidney disease with stage 1 through stage 4 chronic kidney disease, or unspecified chronic kidney disease; M48.00 Spinal stenosis, site unspecified; E78.00 Pure hypercholesterolemia, unspecified; I48.91 Unspecified atrial fibrillation; N18.31 Chronic kidney disease, stage 3a; N40.0 Benign prostatic hyperplasia without lower urinary tract symptoms; Z86.73 Personal history of transient ischemic attack (TIA), and cerebral infarction without residual deficits; Z86.16 Personal history of COVID-19; Z87.891 Personal history of nicotine dependence; Z99.89 Dependence on other enabling machines and devices; Z99.81 Dependence on supplemental oxygen; Z79.84 Long term (current) use of oral hypoglycemic drugs; Z79.01 Long term (current) use of anticoagulants; Z79.899 Other long term (current) drug therapy
CPT/HCPCS: 36415; 70450; 71045; 80053; 80061; 81001; 83036; 83605; 83690; 83735; 83880; 84100; 84145; 84439; 84443; 84484; 85025; 85610; 85730; 86331; 86635; 87040; 87077; 87081; 87086; 87186; 87205; 87400; 87449; 87502; 87634; 87651; 87811; 93005; 93225; 93306; 94640; 94664; 94762; 96361; 96365; 96372; 97162; 99285; A9270; J0456; J0696; J1643; J1815; J1940; J7030; J7050; J1644

== ENCOUNTER → 2025-02-14 | Day surgery (SDC) | payer MEDICARE, SELFPAY ==
--- NOTE | 2025-02-11 07:00 | EKG_ITS ---
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 : 1945 Requested By: Mayte Huber Order Number: [id number] Reading MD: Mayte Huber Measurements Intervals [place] Rate: 66 P: 59 [place]: 287 QRS: -49 QRSD: 160 T: 24 QT: 426 QTc: 450 Interpretive Statements SINUS RHYTHM WITH FIRST DEGREE AV BLOCK RIGHT BUNDLE BRANCH BLOCK [120+ ms QRS DURATION, UPRIGHT V1, 40+ ms S IN I/aVL/V4/V5/V6] LEFT ANTERIOR FASCICULAR BLOCK [QRS AXIS <= -45, QR IN I, RS IN II] Compared to ECG 10/07/2024 17:30:44 First degree AV block now present Left anterior fascicular block now present Atrial flutter no longer present Left-axis deviation no longer present /store/S0/[id number].pdf
[2025-02-11 10:13] LABS: Basophils % (Auto) 0 % (0-2.5); Eosinophils # (Auto) 1.5 Thou/mm3 (0.0-0.5); Eosinophils % (Auto) 16 % (0-10); Hemoglobin 11.7 g/dL (13.5-16.0); Immature Granulocytes % (Auto) 0 % (0-0); Immature Granulocytes Auto 0.02 Thou/mm3 (0.00-0.00); Lymphocytes # (Auto) 2.1 Thou/mm3 (1.0-4.8); Lymphocytes % (Auto) 23 % (10-50); Mean Corpuscular HGB Conc 33.4 g/dl (31.0-37.0); Mean Corpuscular Hemoglobin 32.2 pg (25.0-35.0); Mean Corpuscular Volume 96 fL (80-100); Monocytes # (Auto) 0.8 Thou/mm3 (0.0-0.8); Monocytes % (Auto) 9 % (0-12); Neutrophils # (Auto) 4.8 Thou/mm3 (1.8-7.7); Neutrophils % (Auto) 51 % (37-80); Nucleated Red Blood Cell % 0 /100 WBC (0); Platelet Count 269 Thou/mm3 (140-440); RDW Standard Deviation 47.7 fL (35.1-43.9); Red Blood Count 3.63 Miln/mm3 (4.50-5.90); White Blood Count 9.3 Thou/mm3 (3.8-10.6)
[2025-02-11 10:22] LABS: Partial Thromboplastin Time 27.3 Seconds (22.0-36.0); Prothrombin Time 10.9 Seconds (9.0-12.2)
[2025-02-11 10:27] LABS: Anion Gap 7 (7-16); BUN/Creatinine Ratio 9 Ratio (12-20); Blood Urea Nitrogen 17 mg/dL (9-23); Calcium 9.7 mg/dL (8.3-10.6); Carbon Dioxide 27.5 mMol/L (20.0-31.0); Chloride 103 mMol/L (98-107); Creatinine (Component) 1.9 mg/dL (0.6-1.3); Glucose 165 mg/dL (74-106); Osmolality,Calculated 279 (275-295); Potassium 5.1 mMol/L (3.4-5.1); Sodium 137 mMol/L (136-145); eGFR 35 See Note
[2025-02-14] VITALS (9 sets, daily range): BP systolic 140–179; BP diastolic 72–98; PULSE 85–97; RESP 12–22; TEMP 36.1–36.9; O2SAT 93–99; BMI 32.6
--- NOTE | 2025-02-14 09:30 | XR_ITS ---
Examination: AP chest single view TECHNIQUE: AP upright portable chest single view Exam date and time: February 14, 2025 0946 hours Comparison October 07, 2024 INDICATIONS: Post cardiac pacemaker insertion today. FINDINGS: Cardiac leads satisfactory position Mild prominence left ventricle No pneumothorax Intact osseous structures IMPRESSION: Cardiac leads satisfactory position
[2025-02-14] MEDS: VANCOMYCIN/NS 500 MG IVPB 100 ML 120 MG IV (09:45)
--- NOTE | 2025-02-14 10:58 | PC.NURSE ---
0930: Pt received for recovery. Report from Tennille BURGER. Pt groggy, but awake. Resp even, unlabored. VS stable. Monitor shows pacing. Dressing to left upper chest dry, clean, intact with no swelling, hematoma. Denies pain. 0945: Vancomycin infusing. 0955: Vancomycin contines to infuse with no untoward effects noted. 1000: Pt resting with no complaints voiced. VS stable. Monitor shows pacing. Dressing remains dry, clean, intact with no swelling, hematoma. Pt sitting up tolerating breakfast with no problems swalloing and no n/v. 1030: Vancomycin infusion complete. Pt tolerated infusion with no problems noted.
--- NOTE | 2025-02-14 16:54 | PC.NURSE ---
1135: Pt fully awake, oriented x3. Pt and daughter stated understanding of discharge instructions. Pt discharged from [facility] in stable condition.
--- NOTE | 2025-02-14 17:21 | ESOP_ITS ---
RE: JANAE ROCK : 1945 DATE OF OPERATION: 02/14/2025 PROCEDURE PERFORMED: Implantation of dual chamber permanent pacemaker. PREOPERATIVE DIAGNOSES: Sick sinus syndrome, symptomatic bradycardia, atrial fibrillation with rapid ventricular response, and also marked sinus bradycardia. HISTORY AND INDICATIONS: The patient is an 79-year-old with history of hypertension and paroxysmal atrial fibrillation, who has had severe bradycardia. Heart rate drops to low 30s and low 40s and has had syncopal episode. Because of symptomatic bradycardia and syncopal episode, dual chamber permanent pacemaker is recommended. Class 1 indication for pacemaker implantation. DESCRIPTION OF PROCEDURE: The patient was brought to cardiac catheterization laboratory where the patient was given 3 mg Versed and 100 mcg of fentanyl for conscious sedation. Left subclavian area was prepared in sterile fashion. Left subclavian vein was cannulated by micropuncture technique. Two guidewires were introduced. A linear incision was made. Pocket was created with blunt dissection. Hemostasis was secured. Atrial and ventricular active fixation [employer] leads were advanced. Right atrial appendage, right ventricular apex, 46 cm lead in the atrium and 52 cm lead in the ventricle active fixation was performed. Thresholds were obtained and excellent. After obtaining satisfactory threshold, both leads were anchored to the pectoral fascia with 2-0 silk suture. Pocket was rinsed with antibiotic solution. The patient was given 1 g of Ancef preprocedure for preoperative antibiotic. The [employer] dual chamber permanent pacemaker was generated and attached to the lead securely, placed in the pocket, secured to the pectoral fascia with 2-0 silk suture. Subsequently, subcutaneous tissue closed using 2-0 chromic continuous suture. Skin was closed using scott. The patient tolerated the procedure well with no complications. Cardiac fluoroscopy was used during the procedure for placement of the leads and chest x-ray showed no pneumothorax. Postoperative antibiotic vancomycin 500 mg was given, to be discharged home on oral antibiotic. The patient had no complications. Estimated blood loss 0 and complications none. SUMMARY: Successful implantation of dual chamber AV sequential permanent pacemaker, which is programmed to DDD mode rate of 60 base rate, AF suppression mode 3. The device details is [employer] MRI pacemaker model number 2272, serial number [id number]. The atrial lead is [employer] model number 2088TC, 52 cm length, serial number [id number]. Atrial lead is 58 cm length, serial number [id number]. DT: 16:31:26 TT: 17:15:00 Ref: [id number] - TID: [id number] [facility]
== END | disposition home or self-care (01) ==
PROVIDERS: PCP Internal Medicine; Referring Provider Internal Medicine Cardiovascular Disease; Visit Provider Internal Medicine Cardiovascular Disease
PROC: (CPT 33208; principal; 2025-02-14 08:30)
DX: I49.5 Sick sinus syndrome (principal); I10 Essential (primary) hypertension; J44.9 Chronic obstructive pulmonary disease, unspecified; E78.5 Hyperlipidemia, unspecified; I48.0 Paroxysmal atrial fibrillation; Z86.16 Personal history of COVID-19; Z79.899 Other long term (current) drug therapy; Z87.891 Personal history of nicotine dependence
CPT/HCPCS: 33208; 36415; 80048; 85025; 85610; 85730; 93005; 99152; 99153; A4649; C1785; C1894; C1898; J0153; J0171; J0282; J0461; J0690; J2250; J2310; J2371; J3010; J3370; J3490

== ENCOUNTER → 2025-06-10 | Outpatient (CLI) | payer MEDICARE, SELFPAY ==
[2025-06-10 09:53] LABS: Alanine Aminotransferase 24 U/L (10-49); Albumin, Serum 4.4 gm/dL (3.4-4.8); Albumin/Globulin Ratio 2.3 (1.2-2.2); Alkaline Phosphatase 81 U/L (46-116); Anion Gap 12 (7-16); Aspartate Amino Transferase 44 U/L (0-34); BUN/Creatinine Ratio 10 Ratio (12-20); Bilirubin,Total 0.4 mg/dL (0.3-1.2); Blood Urea Nitrogen 24 mg/dL (9-23); Calcium 10.1 mg/dL (8.3-10.6); Calcium (Corrected) 10.1 mg/dL (8.5-10.1); Carbon Dioxide 21.9 mMol/L (20.0-31.0); Chloride 101 mMol/L (98-107); Creatinine (Component) 2.3 mg/dL (0.6-1.3); Globulin 1.9 gm/dL (2.3-3.5); Glucose 164 mg/dL (74-106); Osmolality,Calculated 278 (275-295); Potassium 5.1 mMol/L (3.4-5.1); Sodium 135 mMol/L (136-145); Total Protein 6.3 gm/dL (5.7-8.2); eGFR 28 See Note
== END | disposition home or self-care (01) ==
PROVIDERS: PCP Physician Assistant; Referring Provider Physician Assistant; Visit Provider Physician Assistant
DX: E78.5 Hyperlipidemia, unspecified (principal)
CPT/HCPCS: 36415; 80053